=== PATIENT | female | born 1960 | race Caucasian/White ===

== ENCOUNTER 2016-10-28 23:16 | Observation (INO) | payer BC, OTHER ==
[~2016-10-28] VITALS: Ht 152.4 cm; Wt 75.2 kg
[~2016-10-28 23:16] MED LIST: ESCI10TA17 PO; GLC/500 PO; PANT40TA PO; PRVC/40 PO; ZIPR20CA PO
[2016-10-28] MEDS ORDERED: KETOROLAC TROMETHAMINE 30 MG/ML VIAL IV STA (23:35)
[2016-10-28] MEDS ORDERED: ONDANSETRON INJ 2 MG/ML 2 ML VIAL IV STA (23:38)
[2016-10-28] MEDS ORDERED: SODIUM CHLORIDE 0.9% 1000ML 1,000 ML IV STA (23:47)
[2016-10-28] MEDS ORDERED: FENTANYL CITRATE INJ 50 MCG/1 ML 2 ML VIAL IV STA (23:47)
[2016-10-28 23:48] LABS: BASO % 0.1 %; BASO ABS # 0.01 K/uL (0-0.2); COMPLETE YES; EOS % 2.2 %; HEMATOCRIT 37.5 % (37-47); IG% 0.2 %; LYMPH % 47.7 %; LYMPH ABS # 4.31 K/uL (1.2-3.4); MEAN CELL VOLUME 89.3 fL (80-100); MEAN CORPUSCULAR HEMOGLOBIN 31.2 pg (25-34); MEAN CORPUSCULAR HGB CONC 34.9 g/dl (32-36); MEAN PLATELET VOLUME 9.2 fL (7.4-10.4); NEUT % 42.8 %; PLATELET COUNT 349 K/uL (130-400); WHITE BLOOD COUNT 9.03 K/uL (4.8-10.8)
--- NOTE | 2016-10-28 23:54 | EMERGENCY ROOM VISIT NOTE ---
History First contact with patient: 23:26 Chief Complaint: ABDOMINAL PAIN Stated Complaint: PAIN RT SIDE OF STOMACH History of Present Illness The patient is a 56 year old female who presents to the Emergency Room with complaints of abdominal pain. Pain is 10/10 constant in the RUQ region. NO previous similar symptoms. She also reports 4 days of diarrhea, chills, nausea , She denies CP, SOB,. She did not take any medication for pain. Pt denies headache, chest pain, shortness of breath, urinary frequency, urgency, pain with urination, and melena. Review of Systems See HPI for pertinent positives & negatives. A total of 10 systems reviewed and were otherwise negative. Past Medical/Surgical History Medical Problems: (1) Acid reflux (2) Gall bladder disease (3) Prediabetes (4) RUQ pain Family History Cancer Diabetes mellitus Gallbladder disease Heart disease Hypertension Social History Smoking Status: Never Smoker Alcohol Use: none Housing Status: lives alone Occupation Status: employed Current/Historical Medications Scheduled Metformin Hcl (Glucophage), 500 MG PO DAILY Pantoprazole (Protonix), 40 MG PO DAILY Pravastatin Sod (Pravastatin Sodium), 40 MG PO DAILY Ziprasidone Hcl (Geodon), 20 MG PO BID Scheduled PRN Hydroxyzine Hcl (Atarax), 25 MG PO BID PRN for Anxiety Allergies Uncoded Allergies: ASA--GI,KEFLEX (Allergy, Unknown, 08/14/04) Physical Exam Vital Signs Date Time Temp Pulse Resp B/P Pulse Ox O2 Delivery O2 Flow Rate FiO2 10/29/16 03:46 68 15 125/69 95 Room Air 10/29/16 02:20 66 17 134/78 97 Room Air 10/29/16 01:13 74 10/29/16 01:03 77 16 124/72 93 Room Air 10/28/16 23:22 36.5 81 20 168/92 98 Room Air Physical Exam GENERAL: alert, mod. distress, EYE EXAM: normal conjunctiva, PERRL and EOM's grossly intact NECK: supple, no nuchal rigidity, no adenopathy, non-tender LUNGS: Clear to auscultation. Normal chest wall mechanics HEART: no murmurs, S1 normal and S2 normal ABDOMEN: tenderness to palpation RUQ, normo-active bowel sounds, no masses, no rebound or guarding. BACK: Back is symmetrical on inspection and there is no deformity, no midline tenderness, no CVA tenderness. SKIN: no rashes and no bruising UPPER EXTREMITIES: upper extremities are grossly normal. LOWER EXTREMITIES: No pitting edema. Medical Decision & Procedures Laboratory Results 10/28/16 23:35 Red Blood Count 4.20, Mean Corpuscular Volume 89.3, Mean Corpuscular Hemoglobin 31.2, Mean Corpuscular Hemoglobin Concent 34.9, Mean Platelet Volume 9.2, Neutrophils (%) (Auto) 42.8, Lymphocytes (%) (Auto) 47.7, Monocytes (%) (Auto) 7.0, Eosinophils (%) (Auto) 2.2, Basophils (%) (Auto) 0.1, Neutrophils # (Auto) 3.86, Lymphocytes # (Auto) 4.31, Monocytes # (Auto) 0.63, Eosinophils # (Auto) 0.20, Basophils # (Auto) 0.01 10/28/16 23:35 Test 10/28/16 23:35 White Blood Count 9.03 K/uL (4.8-10.8) Red Blood Count 4.20 M/uL (4.2-5.4) Hemoglobin 13.1 g/dL (12.0-16.0) Hematocrit 37.5 % (37-47) Mean Corpuscular Volume 89.3 fL (80-100) Mean Corpuscular Hemoglobin 31.2 pg (25-34) Mean Corpuscular Hemoglobin Concent 34.9 g/dl (32-36) Platelet Count 349 K/uL (130-400) Mean Platelet Volume 9.2 fL (7.4-10.4) Neutrophils (%) (Auto) 42.8 % Lymphocytes (%) (Auto) 47.7 % Monocytes (%) (Auto) 7.0 % Eosinophils (%) (Auto) 2.2 % Basophils (%) (Auto) 0.1 % Neutrophils # (Auto) 3.86 K/uL (1.4-6.5) Lymphocytes # (Auto) 4.31 K/uL (1.2-3.4) Monocytes # (Auto) 0.63 K/uL (0.11-0.59) Eosinophils # (Auto) 0.20 K/uL (0-0.5) Basophils # (Auto) 0.01 K/uL (0-0.2) RDW Standard Deviation 42.4 fL (36.4-46.3) RDW Coefficient of Variation 13.0 % (11.5-14.5) Immature Granulocyte % (Auto) 0.2 % Immature Granulocyte # (Auto) 0.02 K/uL (0.00-0.02) Anion Gap 10.0 mmol/L (3-11) Est Creatinine Clear Calc Drug Dose 56.9 ml/min Estimated GFR () 72.9 Estimated GFR (Non- 62.9 BUN/Creatinine Ratio 20.2 (10-20) Calcium Level 8.3 mg/dl (8.5-10.1) Total Bilirubin 0.3 mg/dl (0.2-1) Direct Bilirubin < 0.1 mg/dl (0-0.2) Aspartate Amino Transf (AST/SGOT) 24 U/L (15-37) Alanine Aminotransferase (ALT/SGPT) 42 U/L (12-78) Alkaline Phosphatase 113 U/L (45-117) Total Protein 7.2 gm/dl (6.4-8.2) Albumin 3.9 gm/dl (3.4-5.0) Lipase 345 U/L (73-393) Chemistry Specimen Hemolysis Medications Administered Medications (Trade) Dose Ordered Sig/Bouchra Route Start Time Stop Time Status Last Admin Dose Admin Ondansetron HCl (Zofran Inj) 4 mg NOW STAT IV 10/28/16 23:38 10/28/16 23:39 DC 10/28/16 00:00 4 MG Fentanyl Citrate 50 mcg 50 mcg NOW STAT IV 10/28/16 23:47 10/28/16 23:48 DC 10/28/16 00:00 50 MCG Sodium Chloride (Nss 1000ml) 1,000 ml @ 999 mls/hr Q1H1M STAT IV 10/28/16 23:47 10/29/16 00:47 DC 10/28/16 00:00 999 MLS/HR Fentanyl Citrate (Fentanyl Inj) 75 mcg NOW STAT IV 10/29/16 00:55 10/29/16 00:56 DC 10/29/16 01:00 75 MCG Ondansetron HCl (Zofran Inj) 4 mg NOW STAT IV 10/29/16 01:30 10/29/16 01:31 DC 10/29/16 01:47 4 MG Hydromorphone HCl (Dilaudid Inj) 1 mg NOW STAT IV 10/29/16 02:15 10/29/16 02:16 DC 10/29/16 02:20 1 MG Cefoxitin Sodium (Mefoxin IV) 2,000 mg NOW STAT IV 10/29/16 03:26 10/29/16 03:28 DC 10/29/16 03:45 2,000 MG Medical Decision 56 yo F p/w 4 hrs of p/w abdominal pain 10/10 intensity , RUQ tenderness on exam, VSS, afebrile Acute Cholecystitis with Cholelithiasis CBC unremarkable BMP BUN 20, otherwise unremarkable Lipase negative CT Abdomen: cholelithiasis with possible mural thickening of gallbladder and questionable pericholecystic stranding. RUQ U/S: gallbladder distended containing multiple stones and possible foci of andeomyomatosis, common bile duct 8 mm - MRCP suggested by Radiologist. -Given 1L NS -Given Fentanyl 50 mcg, IV Dilaudid 1 mg -Given IV Zofran 4 mg -Given 1 dose of Cefoxitin IV 2 mg Upon reevaluation, the patient is feeling better. I discussed the case with the resident, DR. Treviño on the hospitalist service who agreed to evaluate her for the inpatient service. She verbalizes agreement and understanding. Impression Primary Impression: Cholecystitis, acute with cholelithiasis Departure Information Dispostion Admitted as an inpatient Referrals Sameera Mayer C.R.N.P. (PCP) Patient Instructions My [facility] Resident Tracking Resident Involvement: Resident Care Provided Care Provided: Adult ED
[2016-10-28] MEDS ORDERED: HYDR-3124 PO (23:56)
--- NOTE | 2016-10-28 23:58 | EMERGENCY ROOM VISIT NOTE ---
History Report prepared by Bertha: Jose Cruz Hernandez Under the Supervision of: Dr. Yosef Downs M.D. First contact with patient: 23:26 Chief Complaint: ABDOMINAL PAIN Stated Complaint: PAIN RT SIDE OF STOMACH History of Present Illness The patient is a 56 year old female who presents to the Emergency Room with complaints of constant abdominal pain that started at 1999 tonight. The pain is severe and is localized to the right upper quadrant. She has never had pain like this before and did not take anything for pain. She has also had four days of chills, nausea, and diarrhea. She has not vomited. The patient denies any chest pain or blood in her stools. The patient does not have any sick contacts. She has not had any previous abdominal surgeries and still has her gallbladder and appendix. She denies any recent injury. The patient takes Metformin for diabetes. Her last A1C was around 5.0. She also has a history of bipolar disorder. Source of History: patient Onset: 1999 tonight Position: abdomen (RUQ) Symptom Intensity: severe Timing: constant Associated Symptoms: + chills, + diarrhea, + nausea, No hematochezia, No vomiting Review of Systems See HPI for pertinent positives & negatives. A total of 10 systems reviewed and were otherwise negative. Past Medical & Surgical Medical Problems: (1) Acid reflux (2) Gall bladder disease (3) Prediabetes (4) RUQ pain Family History Cancer Diabetes mellitus Gallbladder disease Heart disease Hypertension Social History Smoking Status: Never Smoker Alcohol Use: none Housing Status: lives alone Occupation Status: employed Current/Historical Medications Scheduled Metformin Hcl (Glucophage), 500 MG PO DAILY Pantoprazole (Protonix), 40 MG PO DAILY Pravastatin Sod (Pravastatin Sodium), 40 MG PO DAILY Ziprasidone Hcl (Geodon), 20 MG PO BID Scheduled PRN Hydroxyzine Hcl (Atarax), 25 MG PO BID PRN for Anxiety Allergies Uncoded Allergies: ASA--GI,KEFLEX (Allergy, Unknown, 08/14/04) Physical Exam Vital Signs Date Time Temp Pulse Resp B/P Pulse Ox O2 Delivery O2 Flow Rate FiO2 10/29/16 03:46 68 15 125/69 95 Room Air 10/29/16 02:20 66 17 134/78 97 Room Air 10/29/16 01:13 74 10/29/16 01:03 77 16 124/72 93 Room Air 10/28/16 23:22 36.5 81 20 168/92 98 Room Air Physical Exam GENERAL: Patient is very uncomfortable appearing in moderate / severe distress. HEENT: No acute trauma, normocephalic atraumatic, mucous membranes moist, no nasal congestion, no scleral icterus. NECK: No stridor, no adenopathy, no meningismus, trachea is midline. LUNGS: No dyspnea. Clear to auscultation and equal bilaterally. No wheeze, no rhonchi. HEART: Regular rate and rhythm. No murmurs, rubs, gallops appreciated. ABDOMEN: Moderate right upper quadrant tenderness to palpation without peritonitis, no lower abdominal tenderness, hyperactive bowel sounds. BACK: No midline tenderness, no CVA tenderness EXTREMITIES: Normal motion all extremities, no cyanosis, no edema. NEUROLOGIC: Alert and oriented, no acute motor or sensory deficits, no focal weakness, cranial nerves grossly intact. SKIN: No rash, no jaundice, no diaphoresis. Medical Decision & Procedures ER Provider Diagnostic Interpretation: Radiology results and stated below per my review and radiologist interpretation: CT ABDOMEN & PELVIS: Suggestion of cholelithiasis with possible mural thickening of the gallbladder and questionable minimal pericholecystic stranding. Correlate for cholecystitis. Correlate with ultrasound as indicated. The appendix is not visualized. Diverticulosis without diverticulitis and other nonemergent accidental findings. Radiologist: Aroldo Mendez MD. US RUQ: Gallbladder wall is not thickened, measuring 2 mm. however the gallbladder is distended containing multiple stones and possible foci of adenomyomatosis. Query small amount of fluid adjacent to the gallbladder. The presence of sonographic Buitrago sign not specifically reported. Correlate clinically to exclude cholecystitis. Common bile duct measures 8 mm. If clinically concerned for distal biliary ductal obstruction, considered MRCP. Suggestion of steatosis versus other hepatocellular disease alternatively. Radiologist Jose M Rainey MD. Laboratory Results 10/28/16 23:35 Red Blood Count 4.20, Mean Corpuscular Volume 89.3, Mean Corpuscular Hemoglobin 31.2, Mean Corpuscular Hemoglobin Concent 34.9, Mean Platelet Volume 9.2, Neutrophils (%) (Auto) 42.8, Lymphocytes (%) (Auto) 47.7, Monocytes (%) (Auto) 7.0, Eosinophils (%) (Auto) 2.2, Basophils (%) (Auto) 0.1, Neutrophils # (Auto) 3.86, Lymphocytes # (Auto) 4.31, Monocytes # (Auto) 0.63, Eosinophils # (Auto) 0.20, Basophils # (Auto) 0.01 10/28/16 23:35 Test 10/28/16 23:35 White Blood Count 9.03 K/uL (4.8-10.8) Red Blood Count 4.20 M/uL (4.2-5.4) Hemoglobin 13.1 g/dL (12.0-16.0) Hematocrit 37.5 % (37-47) Mean Corpuscular Volume 89.3 fL (80-100) Mean Corpuscular Hemoglobin 31.2 pg (25-34) Mean Corpuscular Hemoglobin Concent 34.9 g/dl (32-36) Platelet Count 349 K/uL (130-400) Mean Platelet Volume 9.2 fL (7.4-10.4) Neutrophils (%) (Auto) 42.8 % Lymphocytes (%) (Auto) 47.7 % Monocytes (%) (Auto) 7.0 % Eosinophils (%) (Auto) 2.2 % Basophils (%) (Auto) 0.1 % Neutrophils # (Auto) 3.86 K/uL (1.4-6.5) Lymphocytes # (Auto) 4.31 K/uL (1.2-3.4) Monocytes # (Auto) 0.63 K/uL (0.11-0.59) Eosinophils # (Auto) 0.20 K/uL (0-0.5) Basophils # (Auto) 0.01 K/uL (0-0.2) RDW Standard Deviation 42.4 fL (36.4-46.3) RDW Coefficient of Variation 13.0 % (11.5-14.5) Immature Granulocyte % (Auto) 0.2 % Immature Granulocyte # (Auto) 0.02 K/uL (0.00-0.02) Anion Gap 10.0 mmol/L (3-11) Est Creatinine Clear Calc Drug Dose 56.9 ml/min Estimated GFR () 72.9 Estimated GFR (Non- 62.9 BUN/Creatinine Ratio 20.2 (10-20) Calcium Level 8.3 mg/dl (8.5-10.1) Total Bilirubin 0.3 mg/dl (0.2-1) Direct Bilirubin < 0.1 mg/dl (0-0.2) Aspartate Amino Transf (AST/SGOT) 24 U/L (15-37) Alanine Aminotransferase (ALT/SGPT) 42 U/L (12-78) Alkaline Phosphatase 113 U/L (45-117) Total Protein 7.2 gm/dl (6.4-8.2) Albumin 3.9 gm/dl (3.4-5.0) Lipase 345 U/L (73-393) Chemistry Specimen Hemolysis Laboratory results as reviewed by me. Medications Administered Medications (Trade) Dose Ordered Sig/Bouchra Route Start Time Stop Time Status Last Admin Dose Admin Ondansetron HCl (Zofran Inj) 4 mg NOW STAT IV 10/28/16 23:38 10/28/16 23:39 DC 10/28/16 00:00 4 MG Fentanyl Citrate 50 mcg 50 mcg NOW STAT IV 10/28/16 23:47 10/28/16 23:48 DC 10/28/16 00:00 50 MCG Sodium Chloride (Nss 1000ml) 1,000 ml @ 999 mls/hr Q1H1M STAT IV 10/28/16 23:47 10/29/16 00:47 DC 10/28/16 00:00 999 MLS/HR Fentanyl Citrate (Fentanyl Inj) 75 mcg NOW STAT IV 10/29/16 00:55 10/29/16 00:56 DC 10/29/16 01:00 75 MCG Ondansetron HCl (Zofran Inj) 4 mg NOW STAT IV 10/29/16 01:30 10/29/16 01:31 DC 10/29/16 01:47 4 MG Hydromorphone HCl (Dilaudid Inj) 1 mg NOW STAT IV 10/29/16 02:15 10/29/16 02:16 DC 10/29/16 02:20 1 MG Cefoxitin Sodium (Mefoxin IV) 2,000 mg NOW STAT IV 10/29/16 03:26 10/29/16 03:28 DC 10/29/16 03:45 2,000 MG ECG Indication: abdominal pain Rate (beats per minute): 73 Rhythm: normal sinus Findings: no acute ischemic change, no ectopy, other (poor baseline) ED Course 5130: The patient was evaluated by my resident, Dr. Moe Voss 2335: Toradol 30 mg IV. 2338: Zofran 4 mg IV. 2345: The patient was evaluated in room B10. A complete history and physical exam was performed. 2347: Fentanyl 50 mcg IV. 0000: The patient is still in pain awaiting medications. 0030: The pain is much improved at 6/10 currently. She does not want more pain medications at this time. 0055: Fentanyl 75 mcg IV. 0130: Zofran 4 mg IV. 0215: Dilaudid 1 mg IV. 0326: Mefoxin 2000 mg IV. 0400: Dr. Voss discussed the case with the [facility] Hospitalist service. The patient will be evaluated. Medical Decision Differential: Cholecystitis, Gallbladder disfunction, Hepatic Disfunction, Gastritis/PUD, Renal Colic, Pancreatitis, ACS, Aortic Pathology, amongst other pathologies entertained. 56 yr old female with Buitrago's sign on examination and symptoms consistent with cholecystitis vs impacted GB stone. No fever and labs look good though with pain she is having clearly CT indicated first. Concerning for GB thickening thus went ahead with US GB which revealed likely stone in duct as well as possible cholecystitis. Required multiple rounds pain meds. Not septic. Will need to come in for further evaluation/treatment of symptoms. No CP, shob, nor palpitations and I do not feel this represents PE nor ACS. Impression Primary Impression: Acute cholecystitis Scribe Attestation The scribe's documentation has been prepared under my direction and personally reviewed by me in its entirety. I confirm that the note above accurately reflects all work, treatment, procedures, and medical decision making performed by me. Departure Information Dispostion Being Evaluated By Hospitalist Referrals Sameera Mayer, C.R.N.P. (PCP) Patient Instructions My [facility]
[2016-10-29] VITALS (9 sets, daily range): BP systolic 94–127; BP diastolic 60–78; PULSE 62–85; TEMP 36.6–36.8; O2SAT 94–100; Ht 152.4 cm; Wt 75.2 kg
[2016-10-29 00:15] LABS: ALKALINE PHOSPHATASE 113 U/L (45-117); AST/SGOT 24 U/L (15-37); BLOOD UREA NITROGEN 20 mg/dl (7-18); BUN/CREATININE RATIO 20.2 (10-20); CALCIUM 8.3 mg/dl (8.5-10.1); CARBON DIOXIDE 26 mmol/L (21-32); CHLORIDE 103 mmol/L (98-107); GLUCOSE 133 mg/dl (70-99); POTASSIUM 3.7 mmol/L (3.5-5.1); SODIUM 139 mmol/L (136-145)
[2016-10-29] MEDS ORDERED: OPTIRAY 320 IV PRN (00:15)
[2016-10-29 00:16] LABS: ALT/SGPT 42 U/L (12-78)
[2016-10-29] MEDS ORDERED: FENTANYL CITRATE INJ 50 MCG/1 ML 2 ML VIAL IV STA (00:55)
[2016-10-29] MEDS ORDERED: ONDANSETRON INJ 2 MG/ML 2 ML VIAL IV STA (01:30)
[2016-10-29] MEDS ORDERED: HYDROmorphone INJ 1 MG/ML SYR IV STA (02:15)
[2016-10-29] MEDS ORDERED: CEFOXITIN SOD 2 GM VIAL IV STA (03:26)
[2016-10-29] MEDS ORDERED: POLYETHYLENE (MIRALAX) 17 GM PACK PO PRN (04:15)
[2016-10-29] MEDS ORDERED: KETOROLAC TROMETHAMINE 30 MG/ML VIAL IV PRN (04:15)
[2016-10-29] MEDS ORDERED: ACETAMINOPHEN 325 MG TAB PO PRN (04:15)
[2016-10-29] MEDS ORDERED: MAGNESIUM HYDROXIDE SUSP 30 ML UDC PO PRN (04:15)
[2016-10-29] MEDS ORDERED: hydrOXYzine HCL 25 MG TAB PO PRN (04:15)
[2016-10-29] MEDS ORDERED: ALUMINUM/MAGNESIUM/SIMETH (MAALOX MAX) 30 ML UDC PO PRN (04:15)
[2016-10-29] MEDS ORDERED: HYDROmorphone INJ 1 MG/ML SYR IV PRN ×2 (04:15→14:00)
[2016-10-29] MEDS ORDERED: ONDANSETRON INJ 2 MG/ML 2 ML VIAL IV PRN ×2 (04:15→14:00)
--- NOTE | 2016-10-29 04:22 | History and Physical ---
History & Physical Date & Time of Service: Oct 29, 2016 at 04:22 Chief Complaint: Pain Rt Side Of Stomach Primary Care Physician: Sameera Mayer C.R.NRickPRick History of Present Illness This is a 56 y/o F with a pmh of pre-diabetes, bipolar type 2 who presents with RUQ pain that began earlier in the evening today. She reports the pain was initially a 9/10 and radiated to her Right flank. She has also had diarrhea, chills and nausea for the last 3 days. She reports that her stools have been dark green. The pain is sharp and somewhat persistent. She has not had pain like this before. Denies melena/hematochezia. She does have a family history of GB disease. She has had a hysterectomy and appendectomy. Denies recent travel. ROS otherwise negative never smoker occasional alcohol Past Medical/Surgical History Medical Problems: (1) Acid reflux Status: Chronic (2) Gall bladder disease Status: Chronic (3) Prediabetes Status: Chronic Family History Cancer Diabetes mellitus Gallbladder disease Heart disease Hypertension Social History Smoking Status: Never Smoker Alcohol Use: occasionally Drug Use: none Marital Status: single Housing status: lives alone Occupational Status: unemployed Multi-Drug Resistant Organisms History of MDRO: No Allergies Uncoded Allergies: ASA--GI,KEFLEX (Allergy, Unknown, 08/14/04) Home Medications Scheduled Metformin Hcl (Glucophage), 500 MG PO DAILY Pantoprazole (Protonix), 40 MG PO DAILY Pravastatin Sod (Pravastatin Sodium), 40 MG PO DAILY Ziprasidone Hcl (Geodon), 20 MG PO BID Scheduled PRN Acetaminophen (Tylenol), 650 MG PO Q8 PRN for mild pain (pain scale 1-3) Hydrocodone/Acetaminophen 5MG/325MG ([place] 5MG/325MG), 1 TAB PO Q6H PRN for Pain Hydroxyzine Hcl (Atarax), 25 MG PO BID PRN for Anxiety Review of Systems Constitutional: + chills, No fatigue, No fever, No sweats, No weakness, No weight loss Eyes: No worsening of vision Respiratory: No cough, No dyspnea at rest, No dyspnea on exertion, No shortness of breath, No sputum, No wheezing Cardiovascular: No chest pain Abdomen: + diarrhea, + nausea, + pain, No constipation, No vomiting Genitourinary - Female: No dysuria, No urinary frequency, No urinary incontinence, No urinary urgency Physical Exam Vital Signs Date Time Temp Pulse Resp B/P Pulse Ox O2 Delivery O2 Flow Rate FiO2 10/29/16 03:46 68 15 125/69 95 Room Air 10/29/16 02:20 66 17 134/78 97 Room Air 10/29/16 01:13 74 10/29/16 01:03 77 16 124/72 93 Room Air 10/28/16 23:22 36.5 81 20 168/92 98 Room Air General Appearance: no apparent distress Eyes: PERRL, EOMI ENT: hearing grossly normal, pharynx normal Neck: supple, no adenopathy Respiratory/Chest: lungs clear, normal breath sounds, no respiratory distress, no accessory muscle use Cardiovascular: regular rate, rhythm, no edema, no murmur, normal peripheral pulses Abdomen/GI: normal bowel sounds, soft, + tenderness (RUQ), + pertinent finding (Buitrago's +'ve) Back: no CVA tenderness Extremities/Musculoskelatal: no calf tenderness, no pedal edema Neurologic/Psych: certified registered nurse practitioner II-XII nml as tested, no motor/sensory deficits, alert, normal mood/affect, oriented x 3 Diagnostics Laboratory Results Results Past 24 Hours Test 10/28/16 23:35 Range/Units White Blood Count 9.03 4.8-10.8 K/uL Red Blood Count 4.20 4.2-5.4 M/uL Hemoglobin 13.1 12.0-16.0 g/dL Hematocrit 37.5 37-47 % Mean Corpuscular Volume 89.3 80-100 fL Mean Corpuscular Hemoglobin 31.2 25-34 pg Mean Corpuscular Hemoglobin Concent 34.9 32-36 g/dl Platelet Count 349 130-400 K/uL Mean Platelet Volume 9.2 7.4-10.4 fL Neutrophils (%) (Auto) 42.8 % Lymphocytes (%) (Auto) 47.7 % Monocytes (%) (Auto) 7.0 % Eosinophils (%) (Auto) 2.2 % Basophils (%) (Auto) 0.1 % Neutrophils # (Auto) 3.86 1.4-6.5 K/uL Lymphocytes # (Auto) 4.31 1.2-3.4 K/uL Monocytes # (Auto) 0.63 0.11-0.59 K/uL Eosinophils # (Auto) 0.20 0-0.5 K/uL Basophils # (Auto) 0.01 0-0.2 K/uL RDW Standard Deviation 42.4 36.4-46.3 fL RDW Coefficient of Variation 13.0 11.5-14.5 % Immature Granulocyte % (Auto) 0.2 % Immature Granulocyte # (Auto) 0.02 0.00-0.02 K/uL Sodium Level 139 136-145 mmol/L Potassium Level 3.7 3.5-5.1 mmol/L Chloride Level 103 98-107 mmol/L Carbon Dioxide Level 26 21-32 mmol/L Anion Gap 10.0 3-11 mmol/L Blood Urea Nitrogen 20 7-18 mg/dl Creatinine 1.00 0.60-1.20 mg/dl Est Creatinine Clear Calc Drug Dose 56.9 ml/min Estimated GFR () 72.9 Estimated GFR (Non- 62.9 BUN/Creatinine Ratio 20.2 10-20 Random Glucose 133 70-99 mg/dl Calcium Level 8.3 8.5-10.1 mg/dl Total Bilirubin 0.3 0.2-1 mg/dl Direct Bilirubin < 0.1 0-0.2 mg/dl Aspartate Amino Transf (AST/SGOT) 24 15-37 U/L Alanine Aminotransferase (ALT/SGPT) 42 12-78 U/L Alkaline Phosphatase 113 45-117 U/L Total Protein 7.2 6.4-8.2 gm/dl Albumin 3.9 3.4-5.0 gm/dl Lipase 345 73-393 U/L Chemistry Specimen Hemolysis Impression Assessment and Plan This is a 56 y/o F who presents with RUQ pain concerning for acute cholecystitis vs. other gb pathologies vs. Gastritis/PUD etc. Patient is currently afebrile, without a white count, hemodynamically stable however, despite all that can't exclude cholecystitis/gangrenous GB. RUQ pain gall bladder USg with distension and multiple stones,? cholecystitis Keep NPO IV NSS Cefoxitin q6h HIDA scan and then possibly MRCP Consult surgery after results. Pain Management Zofran Bipolar 2 continue Ziprasidone Pre-diabetes Hold metformin- can continue on discharge DVT: SCDS Hold chemical, in case surgery is needed GERD Protonix Code: Full VTE Prophylaxis VTE Risk Assessment Done? Y/N: Yes Risk Level: Moderate Assessment and Plan Attending Addendum: Next I have physically seen and examined this patient, have directed their medical care, have supervised the medical residents activities, and agree with the H&P as noted above, with the following changes: NONE
[2016-10-29] MEDS ORDERED: IV FLUIDS COMPLETED PRN (04:30)
--- NOTE | 2016-10-29 07:06 | DIAGNOSTIC IMAGING REPORT ---
CT OF THE ABDOMEN AND PELVIS WITH CONTRAST CLINICAL HISTORY: Right upper quadrant abdominal pain. COMPARISON STUDY: None. TECHNIQUE: Following IV administration of 91 mL of [id number]-[id number], axial images of the abdomen and pelvis were obtained from the lung bases to the proximal femurs. Images were reviewed in the axial, sagittal, and coronal planes. IV contrast was administered without complication. CT DOSE: 486.46 mGy.cm FINDINGS: The liver, spleen, adrenal glands, kidneys and pancreas are unremarkable. A suspected gallstone is noted within the gallbladder. There may be trace pericholecystic fluid with possible gallbladder wall thickening. There is no evidence for a bowel obstruction. The appendix is not visualized. There is no lymphadenopathy. There is colonic diverticulosis without evidence for acute diverticulitis. There is severe arthritis of the left hip. IMPRESSION: 1. Cholelithiasis with possible pericholecystic fluid and gallbladder wall thickening. A right upper quadrant ultrasound could be obtained. 2. No bowel obstruction. 3. Colonic diverticulosis without evidence for acute diverticulitis. Electronically signed by: Reza Grier M.D. 10/29/2016 7:04 AM Dictated Date/Time: 10/29/2016 6:58 AM
--- NOTE | 2016-10-29 07:11 | DIAGNOSTIC IMAGING REPORT ---
ABDOMINAL ULTRASOUND, RIGHT UPPER QUADRANT HISTORY: Right upper quadrant abdominal pain. COMPARISON: CT of the abdomen and pelvis October 29, 2016. FINDINGS: There are gallstones within the gallbladder. The gallbladder is distended. There is trace pericholecystic fluid. No gallbladder wall thickening is noted. There is borderline dilatation of the common bile duct. No common bile duct calculi are identified. The pancreatic body is normal. The head and tail are obscured. There is no right hydronephrosis. Increased hepatic echogenicity suggests fatty infiltration. IMPRESSION: 1. Cholelithiasis, mild gallbladder distention and trace pericholecystic fluid. A hepatobiliary scan could be obtained to evaluate for acute cholecystitis. 2. Borderline dilatation of the common bile duct. 3. Fatty liver. Electronically signed by: Reza Grier M.D. 10/29/2016 7:09 AM Dictated Date/Time: 10/29/2016 7:07 AM
[2016-10-29] MEDS: SODIUM CHLORIDE 0.9% 1000ML 1,000 ML IV SCH ×3 (07:20→22:27)
[2016-10-29] MEDS ORDERED: SINCALIDE INJ 1.5 MCG in SODIUM CHLORIDE 0.9% 100ML 100 ML IV ONE (08:30)
--- NOTE | 2016-10-29 09:51 | DIAGNOSTIC IMAGING REPORT ---
NUCLEAR MEDICINE HEPATOBILIARY SCAN, CLINICAL HISTORY: COMPARISON STUDY: Gallbladder ultrasound dated 10/29/2016, CT scan dated 10/29/2016 FINDINGS: The patient was injected with 5.6 mCi of technetium 99m Choletec. Sequential 5 minute images were acquired. The gallbladder was not visualized on imaging up to 1 hour. At 1 hour the patient was administered 1 mg intravenous Dilaudid. Imaging out to 90 minutes was performed. The gallbladder was not visualized. The findings are indicative of cystic duct obstruction as would be seen in acute cholecystitis. IMPRESSION: Nonvisualization of the gallbladder. The findings are indicative of cystic duct obstruction as would be seen in acute cholecystitis. Electronically signed by: Job Wang M.D. 10/29/2016 9:49 AM Dictated Date/Time: 10/29/2016 9:44 AM
[2016-10-29] MEDS: CEFOXITIN IV 2,000 MG in DEXTROSE 5% 50ML 50 ML IV SCH ×3 (10:08→22:24)
[2016-10-29] MEDS: ZIPRASIDONE 20 MG CAP PO SCH ×2 (11:57→22:25)
[2016-10-29] MEDS: PANTOprazole SOD 40 MG TAB PO SCH (11:57)
--- NOTE | 2016-10-29 11:57 | Progress Note ---
Subjective Date of Service: Oct 29, 2016. Subjective Pt evaluation today including: conversation w/ patient, physical exam, chart review RUQ pain. Problem List Medical Problems: (1) Acute cholecystitis Status: Acute (2) Anxiety Status: Acute (3) Cholecystitis, acute with cholelithiasis Status: Acute (4) Medication side effect Status: Acute Review of Systems Respiratory: No cough, No dyspnea at rest, No dyspnea on exertion, No hemoptysis, No problem reported, No see HPI, No shortness of breath, No sputum, No wheezing Cardiac: No PND, No chest pain, No claudication, No edema, No orthopnea, No palpitations, No problem reported, No see HPI Abdomen: + pain Neurologic: No balance problems, No memory loss, No numbness/tingling, No paralysis, No problem reported, No see HPI, No vertigo, No weakness Medications Medications (Trade) Dose Ordered Sig/Bouchra Route Start Time Stop Time Status Last Admin Dose Admin Ondansetron HCl (Zofran Inj) 4 mg NOW STAT IV 10/28/16 23:38 10/28/16 23:39 DC 10/28/16 00:00 4 MG Fentanyl Citrate 50 mcg 50 mcg NOW STAT IV 10/28/16 23:47 10/28/16 23:48 DC 10/28/16 00:00 50 MCG Sodium Chloride (Nss 1000ml) 1,000 ml @ 999 mls/hr Q1H1M STAT IV 10/28/16 23:47 10/29/16 00:47 DC 10/28/16 00:00 999 MLS/HR Fentanyl Citrate (Fentanyl Inj) 75 mcg NOW STAT IV 10/29/16 00:55 10/29/16 00:56 DC 10/29/16 01:00 75 MCG Ondansetron HCl (Zofran Inj) 4 mg NOW STAT IV 10/29/16 01:30 10/29/16 01:31 DC 10/29/16 01:47 4 MG Hydromorphone HCl (Dilaudid Inj) 1 mg NOW STAT IV 10/29/16 02:15 10/29/16 02:16 DC 10/29/16 02:20 1 MG Cefoxitin Sodium 2000 mg 2,000 mg NOW STAT IV 10/29/16 03:26 10/29/16 03:28 DC 10/29/16 03:45 2,000 MG Sodium Chloride (Nss 1000ml) 1,000 ml @ 125 mls/hr Q8H IV 10/29/16 06:00 11/28/16 05:59 10/29/16 07:20 125 MLS/HR Hydromorphone HCl 1 mg 1 mg Q4 PRN IV 10/29/16 04:15 11/12/16 04:14 10/29/16 09:02 1 MG Cefoxitin Sodium/ Dextrose (Mefoxin IV/D5 50ml) 60 ml @ 100 mls/hr Q6H IV 10/29/16 10:00 11/08/16 09:59 10/29/16 10:08 100 MLS/HR Objective Vital Signs Date Time Temp Pulse Resp B/P Pulse Ox O2 Delivery O2 Flow Rate FiO2 10/29/16 08:00 Room Air 10/29/16 07:18 36.7 68 18 94/60 97 Room Air 10/29/16 06:18 36.8 70 16 114/69 96 Room Air 10/29/16 05:28 69 18 130/76 95 Room Air 10/29/16 03:46 68 15 125/69 95 Room Air 10/29/16 02:20 66 17 134/78 97 Room Air 10/29/16 01:13 74 10/29/16 01:03 77 16 124/72 93 Room Air 10/28/16 23:22 36.5 81 20 168/92 98 Room Air Physical Exam General Appearance: WD/WN Eyes: normal inspection ENT: normal ENT inspection Neck: supple, no adenopathy Respiratory/Chest: chest non-tender, lungs clear Cardiovascular: regular rate, rhythm, no edema, no murmur Abdomen: normal bowel sounds, + tenderness (ruq) Extremities: normal range of motion 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/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 nml as tested, oriented x 3 Laboratory Results Last 24 Hours Test 10/28/16 23:35 White Blood Count 9.03 K/uL Red Blood Count 4.20 M/uL Hemoglobin 13.1 g/dL Hematocrit 37.5 % Mean Corpuscular Volume 89.3 fL Mean Corpuscular Hemoglobin 31.2 pg Mean Corpuscular Hemoglobin Concent 34.9 g/dl Platelet Count 349 K/uL Mean Platelet Volume 9.2 fL Neutrophils (%) (Auto) 42.8 % Lymphocytes (%) (Auto) 47.7 % Monocytes (%) (Auto) 7.0 % Eosinophils (%) (Auto) 2.2 % Basophils (%) (Auto) 0.1 % Neutrophils # (Auto) 3.86 K/uL Lymphocytes # (Auto) 4.31 K/uL Monocytes # (Auto) 0.63 K/uL Eosinophils # (Auto) 0.20 K/uL Basophils # (Auto) 0.01 K/uL RDW Standard Deviation 42.4 fL RDW Coefficient of Variation 13.0 % Immature Granulocyte % (Auto) 0.2 % Immature Granulocyte # (Auto) 0.02 K/uL Sodium Level 139 mmol/L Potassium Level 3.7 mmol/L Chloride Level 103 mmol/L Carbon Dioxide Level 26 mmol/L Anion Gap 10.0 mmol/L Blood Urea Nitrogen 20 mg/dl Creatinine 1.00 mg/dl Est Creatinine Clear Calc Drug Dose 56.9 ml/min Estimated GFR () 72.9 Estimated GFR (Non- 62.9 BUN/Creatinine Ratio 20.2 Random Glucose 133 mg/dl Calcium Level 8.3 mg/dl Total Bilirubin 0.3 mg/dl Direct Bilirubin < 0.1 mg/dl Aspartate Amino Transf (AST/SGOT) 24 U/L Alanine Aminotransferase (ALT/SGPT) 42 U/L Alkaline Phosphatase 113 U/L Total Protein 7.2 gm/dl Albumin 3.9 gm/dl Lipase 345 U/L Chemistry Specimen Hemolysis NUCLEAR MEDICINE HEPATOBILIARY SCAN, CLINICAL HISTORY: COMPARISON STUDY: Gallbladder ultrasound dated 10/29/2016, CT scan dated 10/29/2016 FINDINGS: The patient was injected with 5.6 mCi of technetium 99m Choletec. Sequential 5 minute images were acquired. The gallbladder was not visualized on imaging up to 1 hour. At 1 hour the patient was administered 1 mg intravenous Dilaudid. Imaging out to 90 minutes was performed. The gallbladder was not visualized. The findings are indicative of cystic duct obstruction as would be seen in acute cholecystitis. IMPRESSION: Nonvisualization of the gallbladder. The findings are indicative of cystic duct obstruction as would be seen in acute cholecystitis. Electronically signed by: Job Wang M.D. 10/29/2016 9:49 AM Assessment and Plan Cholecystitis (acute on chronic) Gallstones Keep NPO for now Gen.Surg consult IV Abx. Follow up on cultures. HIDA scan results noted.
--- NOTE | 2016-10-29 13:25 | Pre-Operative Consultation ---
History General Date of Service: Oct 29, 2016. Stated Complaint: RUQ pain HPI HPI: The patient is a 56 year old female being seen for pre-operative evaluation at the request of Dr. Gray for acute cholecystitis. The patient developed abdominal pain about a week ago that was located in the RUQ. She thought she was constipated, pain resolved after having some tea. Around 8 pm yesterday, had recurrent severe, sharp/ stabbing RUQ pain radiating to her back. Associated with nausea, no vomiting. Had noted loose stools for the three days prior. No fevers or chills. Pain was worse with movement, deep breathing. Constant - came to ER for evaluation. Pain is better with pain medications at this time. NPO since yesterday. Historian: patient Anticipated Procedure: laparoscopic cholecystectomy Procedure Urgency: Acute Risk Assessment Major Risk Factors: no known hx of decompensated CHF, no known hx of recent LA , no known hx of severe valvular disease, no known hx of unstable or severe angina Pre-Op Conditions: + other (prediabetes) Problem List Medical Problems: (1) Acute cholecystitis Status: Acute (2) Anxiety Status: Acute (3) Cholecystitis, acute with cholelithiasis Status: Acute (4) Medication side effect Status: Acute Medical & Surgical History Past Medical History: other (prediabetes, hiatal hernia, bipolar disorder) Past Surgical History: appendectomy, hysterectomy (through pfannensteil incision) Family History Family History: no pertinent family hx Social History Hx Tobacco Use In Past Year?: No Smoking Status: Never Smoker Alcohol: none Drug Use: none Marital status: single Housing status: lives alone Occupation status: unemployed Allergies Allergies: Uncoded Allergies: ASA--GI,KEFLEX (Allergy, Unknown, 08/14/04) Medications Current Inpatient Medications Current Inpatient Medications Medications (Trade) Dose Ordered Sig/Bouchra Route Start Time Stop Time Status Last Admin Dose Admin Ioversol (Optiray 320) 100 ml UD PRN IV 10/29/16 00:15 11/02/16 00:14 Acetaminophen (Tylenol Tab) 650 mg Q4H PRN PO 10/29/16 04:15 11/28/16 04:14 Al Hydrox/Mg Hydrox/Simethicone (Maalox Max Susp) 15 ml Q4H PRN PO 10/29/16 04:15 11/28/16 04:14 Magnesium Hydroxide (Milk Of Magnesia Susp) 30 ml Q6H PRN PO 10/29/16 04:15 11/28/16 04:14 Polyethylene (Miralax Powder Packet) 17 gm DAILY PRN PO 10/29/16 04:15 11/28/16 04:14 Ondansetron HCl (Zofran Inj) 4 mg Q6H PRN IV 10/29/16 04:15 11/28/16 04:14 Hydroxyzine HCl (Vistaril Tab) 25 mg BID PRN PO 10/29/16 04:15 11/28/16 04:14 Pantoprazole Sodium (Protonix Tab) 40 mg DAILY PO 10/29/16 09:00 11/28/16 08:59 Pravastatin Sodium (Pravachol Tab) 40 mg PM PO 10/29/16 21:00 11/28/16 20:59 Ziprasidone 20 mg 20 mg BID PO 10/29/16 09:00 11/28/16 08:59 Sodium Chloride (Nss 1000ml) 1,000 ml @ 125 mls/hr Q8H IV 10/29/16 06:00 11/28/16 05:59 10/29/16 07:20 125 MLS/HR Hydromorphone HCl (Dilaudid Inj) 1 mg Q4 PRN IV 10/29/16 04:15 11/12/16 04:14 10/29/16 09:02 1 MG Ketorolac Tromethamine (Toradol Inj) 30 mg Q6H PRN IV 10/29/16 04:15 11/03/16 04:14 Miscellaneous 1 ea 1 ea PRN PRN N/A 10/29/16 04:30 10/29/17 04:29 Cefoxitin Sodium/ Dextrose (Mefoxin IV/D5 50ml) 60 ml @ 100 mls/hr Q6H IV 10/29/16 10:00 11/08/16 09:59 10/29/16 10:08 100 MLS/HR Review of Systems Review of Systems Constitutional: no symptoms reported Eyes: reports: no symptoms ENT: reports: no symptoms reported Cardiovascular: reports: no symptoms reported Respiratory: reports: no symptoms reported Gastrointestinal: see HPI Musculoskeletal: no symptoms reported Integumentary: no symptoms reported Neurologic: reports: no symptoms Psychiatric: reports: no symptoms Physical Exam Physical Exam General Appearance: + WD/WN, No distress Ears, Nose, Throat: + normal ENT inspection, No hearing abnormality Neck: No lymphadenophy, No tracheal deviation Respiratory: No accessory muscle use, No chest tenderness, No decreased breath sounds, No respiratory distress Cardiovascular: No JVD, No abnormal rate, No diastolic murmur, No systolic murmur Abdomen: + other (pfannensteil incision), + tenderness (RUQ, no santacruz's sign currently), No abnormal bowel sounds, No distension, No guarding, No hepatomegaly, No hernia Extremities: No abnormal range of motion, No edema, No slow capillary refill Neurologic/Psychiatric: No abnormal pipe cutter II-XII, No decreased LOC Skin Characteristics: No abnormal color, No cyanosis, No mottling Diagnostics Labs Labs Results Past 24 Hours Test 10/28/16 23:35 Range/Units White Blood Count 9.03 4.8-10.8 K/uL Red Blood Count 4.20 4.2-5.4 M/uL Hemoglobin 13.1 12.0-16.0 g/dL Hematocrit 37.5 37-47 % Mean Corpuscular Volume 89.3 80-100 fL Mean Corpuscular Hemoglobin 31.2 25-34 pg Mean Corpuscular Hemoglobin Concent 34.9 32-36 g/dl Platelet Count 349 130-400 K/uL Mean Platelet Volume 9.2 7.4-10.4 fL Neutrophils (%) (Auto) 42.8 % Lymphocytes (%) (Auto) 47.7 % Monocytes (%) (Auto) 7.0 % Eosinophils (%) (Auto) 2.2 % Basophils (%) (Auto) 0.1 % Neutrophils # (Auto) 3.86 1.4-6.5 K/uL Lymphocytes # (Auto) 4.31 1.2-3.4 K/uL Monocytes # (Auto) 0.63 0.11-0.59 K/uL Eosinophils # (Auto) 0.20 0-0.5 K/uL Basophils # (Auto) 0.01 0-0.2 K/uL RDW Standard Deviation 42.4 36.4-46.3 fL RDW Coefficient of Variation 13.0 11.5-14.5 % Immature Granulocyte % (Auto) 0.2 % Immature Granulocyte # (Auto) 0.02 0.00-0.02 K/uL Sodium Level 139 136-145 mmol/L Potassium Level 3.7 3.5-5.1 mmol/L Chloride Level 103 98-107 mmol/L Carbon Dioxide Level 26 21-32 mmol/L Anion Gap 10.0 3-11 mmol/L Blood Urea Nitrogen 20 7-18 mg/dl Creatinine 1.00 0.60-1.20 mg/dl Est Creatinine Clear Calc Drug Dose 56.9 ml/min Estimated GFR () 72.9 Estimated GFR (Non- 62.9 BUN/Creatinine Ratio 20.2 10-20 Random Glucose 133 70-99 mg/dl Calcium Level 8.3 8.5-10.1 mg/dl Total Bilirubin 0.3 0.2-1 mg/dl Direct Bilirubin < 0.1 0-0.2 mg/dl Aspartate Amino Transf (AST/SGOT) 24 15-37 U/L Alanine Aminotransferase (ALT/SGPT) 42 12-78 U/L Alkaline Phosphatase 113 45-117 U/L Total Protein 7.2 6.4-8.2 gm/dl Albumin 3.9 3.4-5.0 gm/dl Lipase 345 73-393 U/L Chemistry Specimen Hemolysis Lab Interpretation Lab Interpretation: labs were reviewed Diagnostic Radiology Diagnostic Radiology RUQ U/S showed gallstones with pericholecystic fluid HIDA scan c/w acute cholecystitis Impression Assessment and Plan Assessment and Plan 56 yr old woman with acute calculous cholecystitis. Normal LFT's and CBD diameter. Discussed laparoscopic cholecystectomy without IOC. Risks of bleeding , infection, postop bile leak needing ercp, conversion to open, postop diarrhea , postop intolerance to foods all discussed. Consent signed. She is interested in proceeding today - will add on to OR schedule. Expected overnight hospital stay and 1-2 wk recovery period reviewed with pt. Thank you.
[2016-10-29] MEDS ORDERED: FENTANYL CITRATE INJ 50 MCG/1 ML 2 ML VIAL ONE (13:38)
[2016-10-29] MEDS ORDERED: LIDOCAINE HCL 2% 2 ML VIAL (20MG/ML) ONE (13:38)
[2016-10-29] MEDS ORDERED: PROPOFOL IV EMULSION 10 MG/ML 20 ML VIAL IV ONE (13:38)
[2016-10-29] MEDS ORDERED: MIDAZOLAM HCL 1 MG/ML 2ML VIAL ONE (13:38)
[2016-10-29] MEDS ORDERED: CONRAY 60% 50 ML VIAL ONE (13:50)
[2016-10-29] MEDS ORDERED: BUPIVACAINE 0.5 % 5 MG/1 ML MPF 30ML VIAL ONE (13:50)
[2016-10-29] MEDS ORDERED: MEPERIDINE HCL 25 MG/ML CARP IV PRN (14:00)
[2016-10-29] MEDS ORDERED: LABETALOL HCL IV 5 MG/ML 20ML IV PRN (14:00)
[2016-10-29] MEDS ORDERED: EpHEDrine SULFATE INJ 50 MG/ML AMP IV PRN (14:00)
[2016-10-29] MEDS ORDERED: ATROPINE SULFATE 0.1 MG/ML 5ML SYR IV PRN (14:00)
[2016-10-29] MEDS ORDERED: FENTANYL CITRATE INJ 50 MCG/1 ML 2 ML VIAL IV PRN (14:00)
[2016-10-29] MEDS ORDERED: DEXAMETHASONE SOD INJ 4 MG/ML VIAL ONE (14:39)
[2016-10-29] MEDS ORDERED: ONDANSETRON INJ 2 MG/ML 2 ML VIAL ONE (14:39)
[2016-10-29] MEDS ORDERED: PHENYLEPHRINE HCL INJ 10 MG/ML VIAL ONE (14:39)
[2016-10-29] MEDS ORDERED: ROCURONIUM BROMIDE 10 MG/ML 5 ML VIAL ONE (14:39)
[2016-10-29] MEDS ORDERED: NEOSTIGMINE METHYLSULFATE 5 MG/5 ML SYR ONE (14:39)
[2016-10-29] MEDS ORDERED: GLYCOPYRROLATE INJ 0.2 MG/ML VIAL ONE (14:39)
[2016-10-29] MEDS ORDERED: SURGICEL ABSORB HEMOSTAT 2IN X 14IN TOP ONE (15:00)
[2016-10-29] MEDS ORDERED: EpHEDrine SULFATE INJ 50 MG/ML AMP ONE (15:14)
[2016-10-29] MEDS ORDERED: OXYCODONE/ACETAMINOPHEN 5-325 TAB PO PRN ×2 (15:15)
--- NOTE | 2016-10-29 15:15 | [facility] Post Operative Brief Note ---
Immediate Operative Summary Operative Date Oct 29, 2016. Pre-Operative Diagnosis acute calculous cholecystitis Post-Operative Diagnosis acute calculous cholecystitis Procedure(s) Performed Laparoscopic cholecystectomy Surgeon Dr. Kimberlyn Banks Ciaio Lumite Injector Surgeon(s) Celeste Richter PA-C Estimated Blood Loss 15mL Findings distended edematous gallbladder with impacted stone c/w acute calculous cholecystitis single area of oozing on the liver bed at the end of procedure - surgicell placed Fluids (cc crystalloids) 1100 cc Specimens A: gallbladder Drains none Anesthesia GET Complication(s) None Disposition Recovery Room / PACU
--- NOTE | 2016-10-29 15:21 | Discharge Instructions ---
Discharge Instructions Date of Service Oct 29, 2016. Admission Reason for Admission: Ruq Pain Discharge Discharge Diagnosis / Problem: acute calculous cholecystitis Discharge Goals Goal(s): Decrease discomfort Activity Recommendations Activity Limitations: resume your previous activity (walking/ stairs OK today) Lifting Limitations: no more than 10 pounds (2 wks) Exercise/Sports Limitations: until after follow-up appointment (2 wks) May Resume Sexual Activity: after two weeks Shower/Bathe: tomorrow (Remove outer gauze dressings prior to shower, leave steristrips x 7-10 days) Driving or Machine Use: resume 3 days after discharge (if off narcotics) . Instructions / Follow-Up Instructions / Follow-Up call [phone] to schedule a 2 week postop appt with Dr. Banks Current Hospital Diet Patient's current hospital diet: Clear Liquid Diet Discharge Diet Recommended Diet: Low Fat Diet (for 4-6 wks; soups or liquids if bloating persists for first few days) Procedures Procedures Performed: Laparoscopic cholecystectomy Pending Studies Studies pending at discharge: no Medical Emergencies . Who to Call and When: Medical Emergencies: If at any time you feel your situation is an emergency, please call 911 immediately. . Non-Emergent Contact Non-Emergency issues call your: Surgeon Contact Number: [phone] Call Non-Emergent contact if: temperature is above 101.5, your pain is not controlled, your pain is worsening, wound has increased drainage, wound has increased redness, wound has increased pain . "Provider Documentation" section prepared by Kimberlyn Banks. VTE Core Measure Inpt VTE Proph given/why not?: SCD's
--- NOTE | 2016-10-29 15:52 | Anesthesiology Progress Note ---
Anesthesia Post Op Note Date & Time Oct 29, 2016 at 15:51 Vital Signs Pain Intensity: 0 Vital Signs Past 12 Hours Date Time Temp Pulse Resp B/P Pulse Ox O2 Delivery O2 Flow Rate FiO2 10/29/16 15:25 36.5 74 18 110/65 96 Mask 10 10/29/16 13:50 36.8 68 18 108/69 94 Room Air 10/29/16 08:00 Room Air 10/29/16 07:18 36.7 68 18 94/60 97 Room Air 10/29/16 06:18 36.8 70 16 114/69 96 Room Air 10/29/16 05:28 69 18 130/76 95 Room Air Notes Mental Status: alert / awake / arousable, participated in evaluation Pt Amnestic to Procedure: Yes Nausea / Vomiting: adequately controlled Pain: adequately controlled Airway Patency, RR, SpO2: stable & adequate BP & HR: stable & adequate Hydration State: stable & adequate Anesthetic Complications: no major complications apparent
--- NOTE | 2016-10-29 16:34 | OPERATIVE REPORT ---
DATE OF OPERATION: 10/29/2016 PREOPERATIVE DIAGNOSIS: Acute calculous cholecystitis. POSTOPERATIVE DIAGNOSIS: Same. OPERATIVE PROCEDURE: Laparoscopic cholecystectomy. SURGEON: Kimberlyn Banks MD. DIPPER OPERATOR: Celeste Richter PA-C. ANESTHESIA: General endotracheal anesthesia. ESTIMATED BLOOD LOSS: 15 mL INTRAVENOUS FLUIDS: 1100 mL ASA-2. SPECIMENS: Gallbladder. DRAINS: None. OPERATIVE FINDINGS: A distended gallbladder with edematous adhesions and impacted stone. INDICATIONS: Ms. White is a 56-year-old woman who presented with right upper quadrant pain and nausea. Imaging was suggestive of acute cholecystitis. She was consented for laparoscopic cholecystectomy. DESCRIPTION OF PROCEDURE: The patient received Mefoxin preoperatively and had placement of sequential compression devices. After the induction of general endotracheal anesthesia, her abdomen was sterilely prepped and draped. She was positioned in Trendelenburg. A supraumbilical incision was made and a Veress needle was placed into the peritoneal cavity. This was tested with the saline drop test. Pneumoperitoneum was established. Initial pressure was 2 mmHg and this was taken up to 5 mmHg. A 5-mm trocar was then placed. Three additional trocars were placed under direct vision and an 11 in the epigastrium and two 5 on the right side of the abdomen. The patient was repositioned in reverse Trendelenburg and airplaned to the left. The gallbladder was grasped and retracted over the edge of the liver. This was acutely distended and had multiple edematous adhesions. These adhesions were bluntly peeled away. This was somewhat of a oozing dissection. The dissection was begun around the triangle of Calot and the cystic artery and cystic duct identified. The gallbladder was triangulated on the cystic duct. The artery was doubly clipped on the remaining side, similarly clipped on the gallbladder side and divided. After critical views were seen anteriorly and posteriorly, the cystic duct was triply clipped on the remaining side, doubly clipped on the gallbladder side and divided. The gallbladder was then dissected off the liver bed. Again, this was quite edematous gallbladder. This was a slightly oozing dissection. The gallbladder was then removed through an Endobag in the epigastric incision. The abdomen was irrigated and suctioned. There was a single area on the liver that appeared to be oozing. This appeared to be venous. These attempts were made to control this with the cautery. It did slow down. Surgicel was then placed against it and it appeared to stop with application of Surgicel. The Surgicel was left in place. The abdomen was again irrigated. Trocars were removed. The 30 mL of 0.5% Marcaine had been used for local anesthesia throughout the procedure. The fascia of the epigastrium was closed with an 0 Vicryl stitch placed anteriorly. The skin of all 4 incisions closed with running subcuticular 4-0 Vicryl sutures. Steri-Strip and sterile dressings were applied. She was awakened and taken to recovery in stable condition. I attest to the content of the Intraoperative Record and any orders documented therein. Any exceptio ns are noted below.
[2016-10-29] MEDS: ACETAMINOPHEN 325 MG TAB PO PRN (17:46)
[2016-10-29] MEDS ORDERED: PRAVASTATIN SOD 40 MG TAB PO SCH (21:00)
[2016-10-30] VITALS: O2SAT 96
[2016-10-30] MEDS: ACETAMINOPHEN 325 MG TAB PO PRN ×2 (00:42→13:20)
[2016-10-30] MEDS: CEFOXITIN IV 2,000 MG in DEXTROSE 5% 50ML 50 ML IV SCH ×2 (05:09→10:17)
[2016-10-30 07:40] VITALS: BP 108/69; PULSE 69; TEMP 36.9; O2SAT 94
[2016-10-30 07:42] LABS: COMPLETE YES; HEMATOCRIT 31.6 % (37-47); IG% 0.3 %; LYMPH % 19.2 %; LYMPH ABS # 1.37 K/uL (1.2-3.4); MEAN CORPUSCULAR HEMOGLOBIN 30.1 pg (25-34); MEAN CORPUSCULAR HGB CONC 33.9 g/dl (32-36); MEAN PLATELET VOLUME 8.9 fL (7.4-10.4); MONO % 6.6 %; NEUT % 73.9 %; PLATELET COUNT 262 K/uL (130-400); RED BLOOD COUNT 3.55 M/uL (4.2-5.4); WHITE BLOOD COUNT 7.12 K/uL (4.8-10.8)
[2016-10-30 07:43] VITALS: O2SAT 94
[2016-10-30] MEDS: SODIUM CHLORIDE 0.9% 1000ML 1,000 ML IV SCH (07:56)
[2016-10-30] MEDS: ZIPRASIDONE 20 MG CAP PO SCH (07:57)
[2016-10-30] MEDS: PANTOprazole SOD 40 MG TAB PO SCH (07:58)
[2016-10-30 08:27] LABS: BUN/CREATININE RATIO 7.7 (10-20); CALCIUM 7.9 mg/dl (8.5-10.1); CREATININE 0.84 mg/dl (0.60-1.20); POTASSIUM 3.7 mmol/L (3.5-5.1)
[2016-10-30 10:41] VITALS: BP 105/66; PULSE 65; TEMP 36.5; O2SAT 95
--- NOTE | 2016-10-30 11:04 | Surgery Progress Note ---
Surgery Progress Note Date of Service Oct 30, 2016. Subjective Post OP Day: 1 + diet (tolerating), + feeling well, + pain controlled, No nausea, No vomiting Objective Vital Signs: Date Time Temp Pulse Resp B/P Pulse Ox O2 Delivery O2 Flow Rate FiO2 10/30/16 10:41 36.5 65 16 105/66 95 Room Air 10/30/16 07:50 Room Air 10/30/16 07:43 94 Room Air 10/30/16 07:40 36.9 69 16 108/69 94 Room Air 10/30/16 00:00 96 Room Air Mask 10/29/16 23:47 36.8 62 20 103/62 94 Room Air 10/29/16 22:45 36.8 85 18 127/77 97 Room Air 10/29/16 19:37 36.7 72 20 109/74 99 Nasal Cannula 2.0 10/29/16 17:45 36.8 70 18 123/78 100 Nasal Cannula 2.0 10/29/16 16:51 36.6 73 18 106/71 97 Nasal Cannula 2.0 10/29/16 16:15 36.8 75 20 95/62 96 Nasal Cannula 2.0 10/29/16 16:11 77 16 10/29/16 16:11 79 16 96 10/29/16 16:10 102/62 10/29/16 16:06 72 16 96 10/29/16 16:06 72 16 10/29/16 16:05 99/65 10/29/16 16:05 36.7 69 17 99/65 96 Nasal Cannula 2 10/29/16 16:01 71 19 10/29/16 16:01 72 19 96 10/29/16 16:00 75 15 100/61 96 10/29/16 16:00 96 Nasal Cannula 2.0 Mask 10/29/16 16:00 74 15 10/29/16 15:55 74 19 99/65 96 10/29/16 15:55 73 19 10/29/16 15:50 68 22 107/65 99 10/29/16 15:50 70 22 10/29/16 15:45 67 18 112/62 100 10/29/16 15:45 67 18 10/29/16 15:40 68 18 109/65 100 10/29/16 15:40 68 18 10/29/16 15:35 69 16 114/63 100 4/7/17 15:35 70 16 10/29/16 15:30 70 15 110/65 100 10/29/16 15:30 69 15 10/29/16 15:25 73 15 10/29/16 15:25 36.5 74 18 110/65 96 Mask 10 10/29/16 15:25 73 15 110/65 99 10/29/16 13:50 36.8 68 18 108/69 94 Room Air General Appearance: WD/WN, no apparent distress Respiratory/Chest: normal breath sounds, no respiratory distress Cardiovascular: regular rate, rhythm Abdomen: normal bowel sounds, non tender, non distended, soft Incision(s): clean, dry, intact Laboratory Results: Results Past 24 Hours Test 10/30/16 07:19 Range/Units White Blood Count 7.12 4.8-10.8 K/uL Red Blood Count 3.55 4.2-5.4 M/uL Hemoglobin 10.7 12.0-16.0 g/dL Hematocrit 31.6 37-47 % Mean Corpuscular Volume 89.0 80-100 fL Mean Corpuscular Hemoglobin 30.1 25-34 pg Mean Corpuscular Hemoglobin Concent 33.9 32-36 g/dl Platelet Count 262 130-400 K/uL Mean Platelet Volume 8.9 7.4-10.4 fL Neutrophils (%) (Auto) 73.9 % Lymphocytes (%) (Auto) 19.2 % Monocytes (%) (Auto) 6.6 % Eosinophils (%) (Auto) 0.0 % Basophils (%) (Auto) 0.0 % Neutrophils # (Auto) 5.26 1.4-6.5 K/uL Lymphocytes # (Auto) 1.37 1.2-3.4 K/uL Monocytes # (Auto) 0.47 0.11-0.59 K/uL Eosinophils # (Auto) 0.00 0-0.5 K/uL Basophils # (Auto) 0.00 0-0.2 K/uL RDW Standard Deviation 42.5 36.4-46.3 fL RDW Coefficient of Variation 13.1 11.5-14.5 % Immature Granulocyte % (Auto) 0.3 % Immature Granulocyte # (Auto) 0.02 0.00-0.02 K/uL Sodium Level 144 136-145 mmol/L Potassium Level 3.7 3.5-5.1 mmol/L Chloride Level 110 98-107 mmol/L Carbon Dioxide Level 25 21-32 mmol/L Anion Gap 9.0 3-11 mmol/L Blood Urea Nitrogen 7 7-18 mg/dl Creatinine 0.84 0.60-1.20 mg/dl Est Creatinine Clear Calc Drug Dose 67.7 ml/min Estimated GFR () 90.0 Estimated GFR (Non- 77.7 BUN/Creatinine Ratio 7.7 10-20 Random Glucose 124 70-99 mg/dl Calcium Level 7.9 8.5-10.1 mg/dl Assessment & Plan s/p lap cholecystectomy for acute calculous cholecystitis - POD#1. Doing well. OK to discharge from surgical standpoint. All d/c instructions reviewed.
[2016-10-30] MEDS ORDERED: HYDROCODONE/ACETAMOPHEN 5/325MG TAB PO PRN (11:15)
[2016-10-30] MEDS ORDERED: TYL325X PO (12:11)
[2016-10-30] MEDS ORDERED: HYDR-5688 PO (12:11)
--- NOTE | 2016-10-30 12:23 | Discharge Instructions ---
Discharge Instructions Date of Service Oct 30, 2016. Admission Reason for Admission: Ruq Pain Discharge Discharge Diagnosis / Problem: S/P laproscopic cholecystectomy Discharge Goals Goal(s): Decrease discomfort, Improve function Activity Recommendations Activity Limitations: per Instructions/Follow-up section Lifting Limitations: no more than 5 pounds Exercise/Sports Limitations: until after follow-up appointment May Resume Sexual Activity: after follow-up appointment Shower/Bathe: no limitations Driving or Machine Use: after follow up appointment . Instructions / Follow-Up Instructions / Follow-Up Follow up with your PCP with in a week. Current Hospital Diet Patient's current hospital diet: Regular Diet Discharge Diet Recommended Diet: Regular Diet Fluid Restriction: None Procedures Procedures Performed: Laparoscopic cholecystectomy Pending Studies Studies pending at discharge: no Medical Emergencies . Who to Call and When: Medical Emergencies: If at any time you feel your situation is an emergency, please call 911 immediately. . Non-Emergent Contact Non-Emergency issues call your: Primary Care Provider Call Non-Emergent contact if: you have a fever, your pain is not controlled, your pain is worsening, your pain is unusual for you, your pain is concerning you, wound has increased drainage, wound has increased redness, wound has increased pain . Past History Medical & Surgical History: (1) Cholecystitis, acute with cholelithiasis (2) Prediabetes (3) Acid reflux . "Provider Documentation" section prepared by Danyel Reeves. VTE Core Measure Inpt VTE Proph given/why not?: SCD's [place] Drug Monitoring Program Search Results: patient reviewed within database
[2016-10-30 12:38] VITALS: BP 105/66; PULSE 65; TEMP 36.5; O2SAT 95
--- NOTE | 2016-10-30 17:54 | Discharge Summary ---
Discharge Summary Date of Service Oct 30, 2016. Discharge Summary Admission Date: Oct 29, 2016 at 04:16 Discharge Date: Oct 30, 2016 Discharge Disposition: Home Principal Diagnosis: acute cholecystitis status post laparoscopic cholecystectomy Problems/Secondary Diagnoses: Anxiety Consultations: Gen. surgery consultation Medication Reconciliation New Medications: Acetaminophen (Tylenol) 325 Mg Tab 650 MG PO Q8 PRN for mild pain (pain scale 1-3) for 5 Days, #30 TAB Hydrocodone/Acetaminophen 5MG/325MG ([place] 5MG/325MG) Tab 1 TAB PO Q6H PRN for Pain for 3 Days, #12 TAB PRN PAIN Continued Medications: Hydroxyzine Hcl (Atarax) 25 Mg Tab 25 MG PO BID PRN for Anxiety, TAB Metformin Hcl (Glucophage) 500 Mg Tab 500 MG PO DAILY, TAB Pantoprazole (Protonix) 40 Mg Tab 40 MG PO DAILY, #30 TAB Pravastatin Sod (Pravastatin Sodium) 40 Mg Tab 40 MG PO DAILY Ziprasidone Hcl (Geodon) 20 Mg Cap 20 MG PO BID, CAP Discharge Exam Patient is seen and examined by me. Patient is status post acute cholecystectomy day 2. Patient denies abdominal pain. Patient states that she' s feeling much better. Patient is able to walk in the hallway. Patient does not have any pain in the incision was from laparoscopic cholecystectomy. Patient is medically stable to discharge home Hospital Course 56 yr old woman with acute calculous cholecystitis. Normal LFT's and CBD diameter. Patient HIDA scan shows in the cystic duct with a picture of acute cholecystitis. Patient has a laparoscopic cholecystectomy done on 10/29/2016 without any complications. Patient was discharged home in stable condition. Total Time Spent: Greater than 30 minutes This includes examination of the patient, discharge planning, medication reconciliation, and communication with other providers. Discharge Instructions Discharge Discharge Diagnosis / Problem: acute calculous cholecystitis Discharge Goals Goal(s): Decrease discomfort Activity Recommendations Activity Limitations: resume your previous activity (walking/ stairs OK today) Lifting Limitations: no more than 10 pounds (2 wks) Exercise/Sports Limitations: until after follow-up appointment (2 wks) May Resume Sexual Activity: after two weeks Shower/Bathe: tomorrow (Remove outer gauze dressings prior to shower, leave steristrips x 7-10 days) Driving or Machine Use: resume 3 days after discharge (if off narcotics) . Instructions / Follow-Up Instructions / Follow-Up call [phone] to schedule a 2 [address]op appt with Dr. Banks Current Hospital Diet Patient's current hospital diet: Clear Liquid Diet Discharge Diet Recommended Diet: Low Fat Diet (for 4-6 wks; soups or liquids if bloating persists for first few days) Procedures Procedures Performed: Laparoscopic cholecystectomy Pending Studies Studies pending at discharge: no Medical Emergencies . Who to Call and When: Medical Emergencies: If at any time you feel your situation is an emergency, please call 911 immediately. . Non-Emergent Contact Non-Emergency issues call your: Surgeon Contact Number: [phone] Call Non-Emergent contact if: temperature is above 101.5, your pain is not controlled, your pain is worsening, wound has increased drainage, wound has increased redness, wound has increased pain . "Provider Documentation" section prepared by Kimberlyn Banks. VTE Core Measure Inpt VTE Proph given/why not?: SCD'sPlease refer to the electronic Patient Visit Report (Discharge Instructions) for additional information. Follow-Up Follow-up with PCP within one week Additional Copies To Sameera Mayer, [place]
[2017-02-02] MEDS ORDERED: GEMF600T3 PO (13:34)
[2017-02-02] MEDS ORDERED: ESCI10TA17 PO (13:34)
[2017-02-02] MEDS ORDERED: ZIPR1CAP4 PO (13:34)
== END 2016-10-30 14:07 | disposition hospice, home (50) ==
LOC: ENRESERVTM → ENRESERVDT → C.EDB 23:17 → C.MS2W 10-29 04:16
PROVIDERS: ADMIT Hospitalist; ATTEND Hospitalist
DX: K80.12 Calculus of gallbladder with acute and chronic cholecystitis without obstruction (principal); K21.9 Gastro-esophageal reflux disease without esophagitis; R73.03 Prediabetes; F31.81 Bipolar II disorder; Z90.49 Acquired absence of other specified parts of digestive tract; Z90.710 Acquired absence of both cervix and uterus; K44.9 Diaphragmatic hernia without obstruction or gangrene; Z79.84 Long term (current) use of oral hypoglycemic drugs; Z83.3 Family history of diabetes mellitus; Z82.49 Family history of ischemic heart disease and other diseases of the circulatory system

== ENCOUNTER → 2016-11-11 | Outpatient (CLI) | payer OTHER ==
[~2016-11-11] MED LIST changes: +ASPEC325 PO; +CLB200 PO; +CLC100 PO; +GEMF600T3 PO; +HYDR-3124 PO; +HYDR-5688 PO; +ONDA8TAB6 PO; +RXC5 PO; +TYL325X PO; +ZIPR1CAP4 PO
[2016-11-17 16:11] LABS: O&P SOURCE OTHER
== END | disposition home or self-care (01) ==
LOC: C.LABSPEC 17:59
PROVIDERS: ATTEND Nurse Practitioner
DX: R19.7 Diarrhea, unspecified (principal)

== ENCOUNTER → 2017-02-01 | Outpatient (CLI) | payer OTHER ==
[2017-02-01 12:23] LABS: CHOLESTEROL/HDL RATIO 5.2
[2017-02-01 12:38] LABS: ESTIMATED AVERAGE GLUCOSE 114 mg/dl; HA1C FLAG Normal (Normal)
== END | disposition home or self-care (01) ==
LOC: C.LABBFT 09:29
PROVIDERS: ATTEND Nurse Practitioner
DX: R73.03 Prediabetes (principal)

== ENCOUNTER → 2017-02-21 | Outpatient (CLI) | payer OTHER ==
[~2017-02-21] MED LIST changes: -HYDR-5688 PO; -TYL325X PO; -ZIPR20CA PO
[2017-02-21 13:00] LABS: ALKALINE PHOSPHATASE 85 U/L (45-117); ALT/SGPT 45 U/L (12-78); AST/SGOT 23 U/L (15-37)
== END | disposition home or self-care (01) ==
LOC: C.LABBFT 08:42
PROVIDERS: ATTEND Nurse Practitioner
DX: E78.1 Pure hyperglyceridemia (principal)

== ENCOUNTER 2017-03-03 05:20 | Inpatient (IN) | payer OTHER ==
[2017-02-02 13:34] VITALS: BMI 31.0
--- NOTE | 2017-02-02 14:09 | PAT Medication Instructions ---
Service Date Feb 02, 2017. Current Home Medication List Escitalopram (Lexapro), 10 MG PO QAM Gemfibrozil (Lopid), 600 MG PO HS Hydroxyzine Hcl (Atarax), 25 MG PO BID PRN for Anxiety Metformin Hcl (Glucophage), 500 MG PO QAM Pantoprazole (Protonix), 40 MG PO QAM Pravastatin Sod (Pravastatin Sodium), 40 MG PO QAM Ziprasidone Hcl (Geodon), 40 MG PO HS Medication Instructions For Your Scheduled Surgery - Hold the following medications 48 hours prior to surgery: Metformin Hcl (Glucophage), 500 MG PO QAM - Take the following medications the morning of surgery with a sip of water: Pantoprazole (Protonix), 40 MG PO QAM Pravastatin Sod (Pravastatin Sodium), 40 MG PO QAM Hydroxyzine Hcl (Atarax), 25 MG PO BID PRN for Anxiety (if needed) Escitalopram (Lexapro), 10 MG PO QAM - Hold the following medications as scheduled the night before surgery: Gemfibrozil (Lopid), 600 MG PO HS . - Take the following medications as scheduled the night before surgery: Ziprasidone Hcl (Geodon), 40 MG PO HS Hydroxyzine Hcl (Atarax), 25 MG PO BID PRN for Anxiety (if needed) If you have any questions please call us at [phone] or [phone] or [phone]
--- NOTE | 2017-02-02 14:27 | DIAGNOSTIC IMAGING REPORT ---
CHEST PREADMISSION(PA/LAT) CLINICAL HISTORY: PAT preoperative evaluation COMPARISON STUDY: No previous studies for comparison. FINDINGS: The bones soft tissues and hemidiaphragms are normal. The cardiomediastinal silhouette is normal. The lungs are clear. The pulmonary vasculature is normal. IMPRESSION: Negative chest. Electronically signed by: Vinicio Mata M.D. 02/02/2017 2:25 PM Dictated Date/Time: 02/02/2017 2:25 PM
[2017-02-02 14:30] LABS: BASO % 0.2 %; BASO ABS # 0.01 K/uL (0-0.2); COMPLETE YES; EOS % 3.4 %; HEMATOCRIT 37.8 % (37-47); IG% 0.2 %; LYMPH % 44.1 %; LYMPH ABS # 1.95 K/uL (1.2-3.4); MEAN CORPUSCULAR HEMOGLOBIN 30.2 pg (25-34); MEAN CORPUSCULAR HGB CONC 33.6 g/dl (32-36); MEAN PLATELET VOLUME 9.1 fL (7.4-10.4); MONO % 8.4 %; NEUT % 43.7 %; PLATELET COUNT 288 K/uL (130-400); WHITE BLOOD COUNT 4.42 K/uL (4.8-10.8)
[2017-02-02 14:34] LABS: BUN/CREATININE RATIO 17.7 (10-20); CALCIUM 9.1 mg/dl (8.5-10.1); CREATININE 0.86 mg/dl (0.60-1.20)
[2017-02-02 14:49] LABS: INR 0.9 (0.9-1.1)
[2017-02-02 14:49] LABS: URINE APPEARANCE CLEAR (CLEAR); URINE BILIRUBIN NEG (NEG); URINE COLOR YELLOW; URINE NITRITE NEG (NEG); URINE PH 5.5 (4.5-7.5); URINE SPECIFIC GRAVITY 1.024 (1.000-1.030); UROBILINOGEN NEG (NEG); ZZUR CULT IF INDIC CLEAN CATCH NO
[2017-02-02 15:04] LABS: MANUAL MICROSCOPIC REQUIRED? NO; REVIEW REQ? NO
--- NOTE | 2017-03-02 16:42 | HISTORY & PHYSICAL EXAMINATION ---
DATE OF ADMISSION: 03/03/2017 CHIEF COMPLAINT: Left hip pain. HISTORY OF PRESENT ILLNESS: The patient is a 56-year-old female with known severe osteoarthritis about her left hip. She has pain and disability with activities of daily living. She has pain with prolonged weightbearing and standing activities. She has difficulty with any kneeling, bending, or squatting activities. She now desires to proceed with left total hip arthroplasty. PAST MEDICAL HISTORY: Hypercholesterolemia, depression, type 2 diabetes, acid reflux. PAST SURGICAL HISTORY: Appendectomy, cholecystectomy, hip surgery, tonsillectomy, hysterectomy, tubal ligation. MEDICATIONS: Pantoprazole 40 mg daily, Atarax 25 mg b.i.d. p.r.n. anxiety, Geodon 20 mg twice daily, pravastatin 40 mg daily, metformin HCL 500 mg daily. ALLERGIES: FULL STRENGTH ASPIRIN causes acid reflux, MORPHINE causes headaches, PENICILLIN causes vaginal discharge, KEFLEX causes vaginal discharge, TYLENOL causes constipation. SOCIAL HISTORY AND REVIEW OF SYSTEMS: Noncontributory. PHYSICAL EXAMINATION: GENERAL: Well-nourished, well-developed female who appears stated age. HEAD, EYES, EARS, NOSE, AND THROAT: Normocephalic, atraumatic, extraocular movements intact, oropharynx pink and moist. NECK: Supple without adenopathy. LUNGS: Clear to auscultation bilaterally. HEART: Regular rate and rhythm. ABDOMEN: Soft, nontender, nondistended. EXTREMITIES: The upper extremity within normal limits. The left hip demonstrates limited range of motion. There is limitation of active and passive internal/external rotation with pain on end range. X-RAYS: X-rays were reviewed. She has severe osteoarthritis about the left hip with complete loss of the joint space. There are large osteophytes about the femoral head and acetabulum. There is deformation of the femoral head. ASSESSMENT: Left hip degenerative joint disease. PLAN: Risks versus benefits were discussed. Consent was obtained. The patient's primary care physician is Sameera Mayer PA-C from [facility]. Will proceed with left total hip arthroplasty upon preop workup and medical clearance.
[2017-03-03] VITALS (9 sets, daily range): BP systolic 100–120; BP diastolic 61–78; PULSE 63–79; TEMP 35.5–36.8; O2SAT 96–100; Ht 152.4 cm; Wt 73.3 kg
[~2017-03-03] VITALS: Ht 152.4 cm; Wt 73.3 kg
[~2017-03-03 05:20] MED LIST changes: -ASPEC325 PO; -CLB200 PO; -CLC100 PO; -ONDA8TAB6 PO; -RXC5 PO
[2017-03-03] MEDS ORDERED: FAMOTIDINE 20 MG TAB PO SCH (06:00)
[2017-03-03] MEDS ORDERED: DEXAMETHASONE 4 MG TAB PO SCH (06:00)
[2017-03-03] MEDS ORDERED: LACTATED RINGER'S 1000ML 1,000 ML IV SCH (06:00)
[2017-03-03] MEDS ORDERED: METOCLOPRAMIDE HCL 10 MG TAB PO SCH (06:00)
[2017-03-03] MEDS ORDERED: ROPIVACAINE 5MG/ML 30 ML 150 MG, BUPIVACAINE/EPINEPHR 0.5% MPF 30 ML, KETOROLAC TROMETH... INFIL SCH ×7 (06:00)
[2017-03-03] MEDS ORDERED: CeleBREX 200 MG CAP PO SCH (06:00)
[2017-03-03] MEDS ORDERED: ACETAMINOPHEN 500 MG TAB PO SCH (06:00)
[2017-03-03] MEDS ORDERED: GABAPENTIN 300 MG CAP PO SCH (06:00)
[2017-03-03] MEDS ORDERED: LACTATED RINGER'S 1000ML IV SCH (06:00)
[2017-03-03] MEDS ORDERED: VANCOMYCIN INJ 1,100 MG in SODIUM CHLORIDE 0.9% 250ML 250 ML IV SCH (06:00)
[2017-03-03] MEDS ORDERED: BUPIVACAINE 0.5 % 5 MG/1 ML PF 10ML VIAL ONE (06:28)
[2017-03-03] MEDS: TRANEXAMIC ACID INJ 1,000 MG in SODIUM CHLORIDE 0.9% 100ML 100 ML IV SCH ×2 (06:30→06:52)
[2017-03-03] MEDS ORDERED: BACITRACIN 50000 UNIT VIAL ONE (06:33)
[2017-03-03] MEDS ORDERED: POVIDONE-IODINE OP SOLN 30 ML BTL ONE (06:33)
[2017-03-03] MEDS ORDERED: ORTHO JOINT ANESTHETIC ONE (06:33)
[2017-03-03] MEDS ORDERED: MIDAZOLAM HCL 1 MG/ML 2ML VIAL ONE ×2 (06:40)
[2017-03-03] MEDS ORDERED: FENTANYL CITRATE INJ 50 MCG/1 ML 2 ML VIAL ONE (06:40)
--- NOTE | 2017-03-03 06:55 | History & Physical Bridge Note ---
H&P Re-Evaluation Bridge Note: I have examined the patient, reviewed the History & Physical and in the interval since the performance of the History & Physical I have noted the following changes of clinical significance: No changes noted
[2017-03-03] MEDS ORDERED: PROPOFOL IV EMULSION 10 MG/ML 20 ML VIAL IV ONE (07:11)
[2017-03-03] MEDS ORDERED: LIDOCAINE HCL 2% 2 ML VIAL (20MG/ML) ONE (07:11)
[2017-03-03] MEDS ORDERED: ATROPINE SULFATE 0.1 MG/ML 5ML SYR IV PRN (07:15)
[2017-03-03] MEDS ORDERED: ONDANSETRON INJ 2 MG/ML 2 ML VIAL IV PRN ×2 (07:15→08:15)
[2017-03-03] MEDS ORDERED: EpHEDrine SULFATE INJ 50 MG/ML AMP IV PRN (07:15)
[2017-03-03] MEDS ORDERED: FENTANYL CITRATE INJ 50 MCG/1 ML 2 ML VIAL IV PRN (07:15)
[2017-03-03] MEDS ORDERED: PROMETHAZINE HCL INJ 6.25 MG in SODIUM CHLORIDE 0.9% 50ML 50 ML IV PRN (07:15)
[2017-03-03] MEDS ORDERED: EpHEDrine SULFATE 50MG/5ML SYR ONE (07:54)
--- NOTE | 2017-03-03 07:58 | [facility] Post Operative Brief Note ---
Immediate Operative Summary Operative Date Mar 03, 2017. Pre-Operative Diagnosis Left Hip Degenerative Joint Disease Post-Operative Diagnosis Left Hip Degenerative Joint Disease Procedure(s) Performed Left Total Hip Arthroplasty Surgeon Dr. Hari Platt Automatic Glove Turner And Former Surgeon(s) Jefferson Ray PA-C Estimated Blood Loss 100ML Findings Severe OA Specimens A. Left Femoral Head Complication(s) None Disposition Recovery Room / PACU
--- NOTE | 2017-03-03 08:08 | OPERATIVE REPORT ---
DATE OF OPERATION: 03/03/2017 PREOPERATIVE DIAGNOSIS: Osteoarthritis, left hip. POSTOPERATIVE DIAGNOSIS: Osteoarthritis left hip. PROCEDURE: Left connective total hip arthroplasty. SURGEON: Dr. Platt. VALIDATION INTERN: Jefferson Ray PA-C. ANESTHESIA: Spinal. COMPLICATIONS: None. OPERATION AND FINDINGS: PROCEDURE: Following induction of adequate spinal anesthesia, the patient was placed in right lateral decubitus position and left Claudia-Langenbeck incision was made. Subcutaneous tissue was sharply dissected. Electrocautery used for hemostasis. The fascia was incised throughout the length of the wound and a kaur scissor placed beneath the short external rotators. The pyriformis was tagged with #1 Vicryl. The short external rotators were divided from the posterior aspect of the femur using electrocautery. These were swept posteriorly. A T-capsulotomy incision was made and the hip was dislocated using a combination of flexion, adduction, and internal rotation. Exposure of the femoral neck with old-style Hohmann and a blunt Hohmann was carried out and a femoral rasp was utilized as a guide for making the appropriate level femoral neck cut. This bone fragment was removed and reserved on the back table. Next, attention was turned to the acetabulum where bone hook was used to retract the femur while the offset retractors were placed anterior and posteriorly. A double-angled Hohmann was placed in superior and anterior position exposing the acetabulum nicely. Acetabular labrum as well as posterior capsule elements were removed using a long knife and a long pickup. Fovea centralis was cleared of all soft tissue. Sequential reamings were carried up to a 50 and decision was made to proceed with impaction of a 50 trabecular metal cup. This was impacted and held using a single 35 mm bone screw. The acetabular liner was placed with 15 of elevated posterior wall in the superior and posterior position. Next, attention was turned to the femoral portion of the case where a Bovie and pickup was used to further clear short external rotators from their insertion on the femur. Box osteotome was used to gain access to the femoral canal and the T-handled rasp and a rattail rasp were used to further open and lateral the canal. Sequentially raspings were carried up to a size 3 which gave good fit and fill of the proximal femur. A trial reduction was carried out and size 3 offset femoral neck component was chosen as the size to be used. A -5 x 36 mm ceramic femoral head was impacted into position, +0 head was utilized. The trial reduction was stable in all degrees of rotation with no [id number] impingement. The hip was dislocated. The trial components were removed and the final femoral stem, neck, and femoral head combination were assembled on the back table and impacted into position. Hip was relocated. Range of motion checked once again successful and the wound was irrigated. The pyriformis repaired to the greater trochanter using #1 Vicryl [id number] suture. A Hemovac drain was placed and the fascia was closed using #1 Vicryl, subcutaneous tissue was closed using 0 Dexon, and skin was closed with romaine. Sterile dressing of Adaptic, 4 x 4's, ABDs, and foam tape was applied. The patient tolerated the procedure well. Recovery room stable. Due to the complex nature of the procedure, the entire surgery was performed with the operational assistance of Jefferson Ray PA-C. The photographer's assistant, under direct supervision, was involved in the actual performance of all aspects of the surgical procedure including hemostasis, tissue retraction and incision, instrument management, patient positioning, and wound closure. I attest to the content of the Intraoperative Record and any orders documented therein. Any exception s are noted below.
[2017-03-03] MEDS ORDERED: METOCLOPRAMIDE HCL INJ 5 MG/ML 2 ML VIAL IV PRN (08:15)
[2017-03-03] MEDS ORDERED: MoRPHine SULFATE 2 MG/ML CARP IV PRN (08:15)
[2017-03-03] MEDS ORDERED: BISACODYL 10 MG SUPP PR PRN (08:15)
[2017-03-03] MEDS ORDERED: SOD PHOSPHATE/SOD BIPHOSPHATE ENEMA 132 ML BTL PR PRN (08:15)
[2017-03-03] MEDS ORDERED: ZOLPIDEM TARTRATE 5 MG TAB PO PRN (08:15)
[2017-03-03] MEDS ORDERED: MAGNESIUM HYDROXIDE SUSP 30 ML UDC PO PRN (08:15)
--- NOTE | 2017-03-03 09:03 | DIAGNOSTIC IMAGING REPORT ---
LEFT PELVIS/UNILATERAL HIP 1 VIEW CLINICAL HISTORY: Postoperative evaluation. Left hip osteoarthritis. COMPARISON: None FINDINGS: Alignment of the total left hip arthroplasty is anatomic. There is no periprosthetic fracture or unexpected radiopaque foreign body. Drains and skin romaine are present. IMPRESSION: Expected findings following total left hip arthroplasty. Electronically signed by: Reza Grier M.D. 03/03/2017 9:01 AM Dictated Date/Time: 03/03/2017 8:55 AM
--- NOTE | 2017-03-03 09:51 | Anesthesiology Progress Note ---
Anesthesia Post Op Note Date & Time Mar 03, 2017 at 09:51 Vital Signs Pain Intensity: 0 Vital Signs Past 12 Hours Date Time Temp Pulse Resp B/P (MAP) Pulse Ox O2 Delivery O2 Flow Rate FiO2 03/03/17 09:38 36.5 03/03/17 09:37 65 12 03/03/17 09:37 65 12 100 03/03/17 09:36 108/62 03/03/17 09:32 62 12 03/03/17 09:32 60 12 100 03/03/17 09:31 105/60 03/03/17 09:27 62 12 100 03/03/17 09:27 61 12 03/03/17 09:26 105/61 03/03/17 09:22 63 12 03/03/17 09:22 63 12 100 03/03/17 09:21 108/61 03/03/17 09:17 61 12 03/03/17 09:17 61 12 100 03/03/17 09:16 102/60 03/03/17 09:12 60 12 100 03/03/17 09:12 60 12 03/03/17 09:11 96/63 03/03/17 09:07 61 15 03/03/17 09:07 60 15 100 03/03/17 09:06 104/61 03/03/17 09:02 60 13 03/03/17 09:02 61 13 100 03/03/17 09:01 107/63 03/03/17 08:57 60 13 100 03/03/17 08:57 61 13 03/03/17 08:56 103/63 03/03/17 08:53 Nasal Cannula 3 03/03/17 08:52 64 12 03/03/17 08:52 63 12 100 03/03/17 08:51 101/61 03/03/17 08:47 69 15 100 03/03/17 08:47 68 15 03/03/17 08:46 107/60 03/03/17 08:42 65 43 100 03/03/17 08:42 64 43 03/03/17 08:41 106/80 03/03/17 08:37 65 13 03/03/17 08:37 65 13 100 03/03/17 08:36 95/62 03/03/17 08:32 36.3 63 16 95/62 98 Mask 7 03/03/17 05:55 36.8 63 18 120/78 99 Room Air Notes Mental Status: alert / awake / arousable, participated in evaluation Pt Amnestic to Procedure: Yes Nausea / Vomiting: adequately controlled Pain: adequately controlled Airway Patency, RR, SpO2: stable & adequate BP & HR: stable & adequate Hydration State: stable & adequate Anesthetic Complications: no major complications apparent
[2017-03-03] MEDS: D5W AND 1/2NSS + 20MEQ KCL 1,000 ML IV SCH ×2 (10:44→20:43)
[2017-03-03] MEDS ORDERED: MoRPHine SULFATE 4 MG/ML 1 ML CARP\\VIAL IV PRN (10:45)
[2017-03-03] MEDS ORDERED: MoRPHine SULFATE 10 MG/ML CARP/VIAL IV PRN (10:45)
[2017-03-03] MEDS: GEMFIBROZIL 600 MG TAB PO SCH (11:07)
[2017-03-03] MEDS: PANTOprazole SOD 40 MG TAB PO SCH (11:07)
[2017-03-03] MEDS: MULTIVITAMIN TAB PO SCH (11:07)
[2017-03-03] MEDS: ESCITALOPRAM OXALATE 10 MG TAB PO SCH (11:07)
[2017-03-03] MEDS ORDERED: TRANEXAMIC ACID INJ 1,000 MG in SODIUM CHLORIDE 0.9% 100ML 100 ML IV ONE (14:30)
[2017-03-03] MEDS: OXYCODONE HCL IR 5 MG TAB (IMMEDIATE RELEASE) PO PRN ×3 (17:27→22:35)
[2017-03-03] MEDS: CEFAZOLIN IV 1,000 MG in DEXTROSE 5% 50ML 50 ML IV SCH (18:31)
[2017-03-03] MEDS: CeleBREX 200 MG CAP PO SCH (20:43)
[2017-03-03] MEDS: DOCUSATE SODIUM 100 MG CAP PO SCH (20:44)
[2017-03-03] MEDS: PRAVASTATIN SOD 40 MG TAB PO SCH (20:44)
[2017-03-03] MEDS: SENNA 8.6 MG TAB PO SCH (20:44)
[2017-03-03] MEDS: ASPIRIN 325 MG ECTAB PO SCH (20:44)
[2017-03-03] MEDS: ZIPRASIDONE 20 MG CAP PO SCH (22:34)
[2017-03-04] VITALS (7 sets, daily range): BP systolic 100–126; BP diastolic 60–77; PULSE 60–74; TEMP 36.5–37; O2SAT 95–98
[2017-03-04] MEDS: CEFAZOLIN IV 1,000 MG in DEXTROSE 5% 50ML 50 ML IV SCH (02:05)
[2017-03-04] MEDS: D5W AND 1/2NSS + 20MEQ KCL 1,000 ML IV SCH ×2 (06:31→16:18)
--- NOTE | 2017-03-04 08:13 | Anesthesiology Progress Note ---
Anesthesia Post Op Note Date & Time Mar 04, 2017 at 08:12 Vital Signs Vital Signs Past 12 Hours Date Time Temp Pulse Resp B/P (MAP) Pulse Ox O2 Delivery O2 Flow Rate FiO2 03/04/17 08:01 Room Air 03/04/17 08:00 36.5 62 16 100/62 (75) 98 Room Air 03/04/17 03:52 36.5 60 16 106/64 (78) 96 Room Air 03/03/17 23:28 Room Air 03/03/17 22:56 36.7 70 16 101/61 (74) 96 Room Air Notes Mental Status: alert / awake / arousable, participated in evaluation Pt Amnestic to Procedure: Yes Nausea / Vomiting: adequately controlled Pain: adequately controlled Airway Patency, RR, SpO2: stable & adequate BP & HR: stable & adequate Hydration State: stable & adequate Neuraxial Anesthesia: was administered, sensory block resolved Anesthetic Complications: no major complications apparent
[2017-03-04] MEDS: ESCITALOPRAM OXALATE 10 MG TAB PO SCH (08:30)
[2017-03-04] MEDS: GEMFIBROZIL 600 MG TAB PO SCH (08:30)
[2017-03-04] MEDS: PANTOprazole SOD 40 MG TAB PO SCH (08:30)
[2017-03-04] MEDS: MULTIVITAMIN TAB PO SCH (08:31)
[2017-03-04] MEDS: DOCUSATE SODIUM 100 MG CAP PO SCH ×2 (08:31→20:52)
[2017-03-04] MEDS: CeleBREX 200 MG CAP PO SCH ×2 (08:31→20:52)
[2017-03-04] MEDS: ASPIRIN 325 MG ECTAB PO SCH ×2 (08:31→20:52)
[2017-03-04] MEDS: OXYCODONE HCL IR 5 MG TAB (IMMEDIATE RELEASE) PO PRN ×3 (10:07→23:17)
--- NOTE | 2017-03-04 12:29 | Orthopedic Progress Note ---
Orthopedic Progress Note Date of Service Mar 04, 2017. Subjective Post OP Day: 1 Reports: feeling well, pain controlled w PO medications, Denies: complaints, chest pain, SOB, nausea / vomiting, light headedness, calf pain Objective calves soft nontender, N/V intact, dressing C/D/I, A&O x3, toes mobile, hemovac drainage (55cc) Date Time Temp Pulse Resp B/P (MAP) Pulse Ox O2 Delivery O2 Flow Rate FiO2 03/04/17 12:08 36.5 60 16 104/60 (75) 98 Room Air 03/04/17 08:19 98 Room Air 03/04/17 08:01 Room Air 03/04/17 08:00 36.5 62 16 100/62 (75) 98 Room Air 03/04/17 03:52 36.5 60 16 106/64 (78) 96 Room Air 03/03/17 23:28 Room Air 03/03/17 22:56 36.7 70 16 101/61 (74) 96 Room Air 03/03/17 19:28 36.8 79 18 110/67 (81) 96 Room Air 03/03/17 15:50 Room Air 03/03/17 14:55 36.8 76 17 100/64 (76) 96 Room Air 03/03/17 13:00 78 16 109/68 (82) 99 Laboratory Results 24 Hours: Test 03/04/17 11:50 Assessment & Plan Assessment: POD #1 Left JOSEFINA Plan: DVT prophylaxis - ASA PT/OT Discharge - will be going to [facility] once approved by insurance. Inhouse Planning Pain Management: Celebrex, Oxy IR DVT Prophylaxis: TEDs, SCDs, ASA Discharge Planning Discharge Planning: halfway facility ([facility]) DVT Prophylaxis: TEDs, ASA Therapy: Physical Therapy
[2017-03-04 12:42] LABS: HEMATOCRIT 31.4 % (37-47); MEAN CELL VOLUME 91.8 fL (80-100); MEAN CORPUSCULAR HEMOGLOBIN 30.4 pg (25-34); MEAN CORPUSCULAR HGB CONC 33.1 g/dl (32-36); PLATELET COUNT 267 K/uL (130-400); RED BLOOD COUNT 3.42 M/uL (4.2-5.4); WHITE BLOOD COUNT 9.84 K/uL (4.8-10.8)
[2017-03-04 13:09] LABS: BUN/CREATININE RATIO 12.4 (10-20); CALCIUM 8.2 mg/dl (8.5-10.1); CREATININE 1.1 mg/dl (0.60-1.20); POTASSIUM 4.1 mmol/L (3.5-5.1)
[2017-03-04] MEDS ORDERED: NURSING VERBAL MED ORDER ONE (18:00)
[2017-03-04] MEDS: SENNA 8.6 MG TAB PO SCH (20:53)
[2017-03-04] MEDS: PRAVASTATIN SOD 40 MG TAB PO SCH (20:53)
[2017-03-04] MEDS: ZIPRASIDONE 20 MG CAP PO SCH (20:53)
[2017-03-05 07:08] VITALS: BP 92/58; PULSE 74; TEMP 37.1; O2SAT 96
--- NOTE | 2017-03-05 07:35 | Orthopedic Progress Note ---
Orthopedic Progress Note Date of Service Mar 05, 2017. Subjective Post OP Day: 2 Reports: feeling well, pain controlled w PO medications, Denies: complaints, chest pain, SOB, nausea / vomiting, light headedness, calf pain Objective calves soft nontender, N/V intact, capillary refill less than 2 sec., A&O x3, toes mobile Date Time Temp Pulse Resp B/P (MAP) Pulse Ox O2 Delivery O2 Flow Rate FiO2 03/05/17 07:08 37.1 74 17 92/58 (69) 96 Room Air 03/04/17 23:10 Room Air 03/04/17 23:01 37.0 74 14 113/70 (84) 95 Room Air 03/04/17 20:58 36.9 73 126/77 (93) 03/04/17 15:29 Room Air 03/04/17 14:51 36.7 61 16 105/65 (78) 97 Room Air 03/04/17 12:08 36.5 60 16 104/60 (75) 98 Room Air 03/04/17 08:19 98 Room Air 03/04/17 08:01 Room Air 03/04/17 08:00 36.5 62 16 100/62 (75) 98 Room Air Laboratory Results 24 Hours: Test 03/04/17 12:25 Hematocrit 31.4 % Hemoglobin 10.4 g/dL Assessment & Plan Assessment: POD #2 Left JOSEFINA Plan: DVT prophylaxis - ASA PT/OT Discharge - will be going to [facility] once approved by insurance, has been accepted to [facility], awaiting insurance approval. Discharge Planning Discharge Planning: rehab hospital DVT Prophylaxis: SIMEON Evans Therapy: Physical Therapy
[2017-03-05] MEDS: ESCITALOPRAM OXALATE 10 MG TAB PO SCH (08:41)
[2017-03-05] MEDS: PANTOprazole SOD 40 MG TAB PO SCH (08:41)
[2017-03-05] MEDS: CeleBREX 200 MG CAP PO SCH ×2 (08:41→20:56)
[2017-03-05] MEDS: MULTIVITAMIN TAB PO SCH (08:41)
[2017-03-05] MEDS: GEMFIBROZIL 600 MG TAB PO SCH (08:41)
[2017-03-05] MEDS: DOCUSATE SODIUM 100 MG CAP PO SCH ×2 (08:41→20:57)
[2017-03-05] MEDS: ASPIRIN 325 MG ECTAB PO SCH ×2 (08:41→20:57)
[2017-03-05] MEDS: OXYCODONE HCL IR 5 MG TAB (IMMEDIATE RELEASE) PO PRN (08:45)
[2017-03-05 15:20] VITALS: BP 100/65; PULSE 81; TEMP 36.7; O2SAT 94
[2017-03-05] MEDS: ZIPRASIDONE 20 MG CAP PO SCH (20:56)
[2017-03-05] MEDS: PRAVASTATIN SOD 40 MG TAB PO SCH (20:56)
[2017-03-05] MEDS: SENNA 8.6 MG TAB PO SCH (20:57)
[2017-03-05 22:48] VITALS: BP 94/58; PULSE 85; TEMP 37.4; O2SAT 93
--- NOTE | 2017-03-06 06:17 | Orthopedic Progress Note ---
Orthopedic Progress Note Date of Service Mar 06, 2017. Subjective Post OP Day: 3 Reports: feeling well, pain controlled w PO medications, Denies: complaints, chest pain, SOB, nausea / vomiting, light headedness, calf pain Objective calves soft nontender, N/V intact, capillary refill less than 2 sec., dressing C /D/I, A&O x3, toes mobile Date Time Temp Pulse Resp B/P (MAP) Pulse Ox O2 Delivery O2 Flow Rate FiO2 03/05/17 23:35 Room Air 03/05/17 22:48 37.4 85 16 94/58 (70) 93 Room Air 03/05/17 19:20 Room Air 03/05/17 15:20 36.7 81 18 100/65 (77) 94 Room Air 03/05/17 07:55 Room Air 03/05/17 07:08 37.1 74 17 92/58 (69) 96 Room Air Assessment & Plan Assessment: POD #3 Left JOSEFINA Plan: DVT prophylaxis - ASA PT/OT Discharge - patient progressing well, was denied to [facility]. would like to be d/c home today with HHPT. Discharge Planning Discharge Planning: home with home health DVT Prophylaxis: Cristina ASA Therapy: Physical Therapy
[2017-03-06] MEDS ORDERED: ASPEC325 PO (06:20)
[2017-03-06] MEDS ORDERED: CLB200 PO (06:20)
[2017-03-06] MEDS ORDERED: RXC5 PO (06:20)
[2017-03-06] MEDS ORDERED: ONDA8TAB6 PO (06:20)
[2017-03-06] MEDS ORDERED: CLC100 PO (06:20)
--- NOTE | 2017-03-06 06:21 | Discharge Instructions ---
Discharge Instructions Date of Service Mar 06, 2017. Admission Reason for Admission: Left Hip Osteoarthritis Discharge Discharge Diagnosis / Problem: Left Total Hip Replacement Discharge Goals Goal(s): Decrease discomfort, Improve function, Increase independence Activity Recommendations Activity Limitations: as noted below Weightbearing Status: Left weightbearing (as tolerated) . Instructions / Follow-Up Instructions / Follow-Up ACTIVITY RECOMMENDATIONS: SELF CARE INSTRUCTIONS AFTER TOTAL HIP REPLACEMENT Until the incision and soft tissues around your hip have healed, there is a possibility that the hip prosthesis could dislocate. A. Observe the following precautions to prevent dislocation: 1. Don't bend your hip greater than 90 degrees. 2. Avoid crossing your legs or ankles while standing or lying. 3. Sit with your feet placed 6 inches apart. 4. When sitting, keep your knees below your hips. Sit on a firm surface, avoid deep, soft chairs and couches. Use an elevated toilet seat in the bathroom. 5. Don't bend over at the waist. Use a long handled shoehorn and a sock aid to help you put on your shoes and socks. A analysis engineer can help you car pick up driver objects that are too high or too low to reach. 6. Keep car riding to a minimum for at least one month after surgery. B. Your balance may be shaky for a while. Use crutches or a walker until directed by your doctor. C. Use hand rails when walking on stairs. D. Wear low heeled shoes with non-slip soles. E. Be sure that your floors are free of things that could trip you - throw rugs , electrical cords, small objects. Avoid wet and waxed floors, especially with crutches and canes. F. Try to walk several times a day with rest periods between. G. Continue with all the exercises taught to you in the hospital. Again, make walking a part of your daily routine. SPECIAL CARE INSTRUCTIONS: VERY IMPORTANT TO READ AND REVIEW A. You may still be at risk for phlebitis and blood clots. 1. Wear surgical stockings (NELLY hose) for 2 weeks after surgery to improve circulation and reduce swelling. 2. Take Aspirin 81mg twice daily for 4 weeks or as directed by your doctor. This is your blood thinner. 3. High risk patients may be prescribed a stronger blood thinner if necessary. 4. If you are on Coumadin normally, your family doctor/pattern repair person should monitor your blood work. Expect a phone call the day of or the day after bloodwork is drawn to adjust your dosage. B. You must take antibiotics before having dental work, bladder, bowel and other surgery. Your doctor will provide you with a permanent card to carry describing precautions. C. Call [facility] if you have a fever, redness or swelling around the incision, cloudy drainage from incision, or sudden increase in pain in your hip, not relieved by your regular pain medication. D. Please call the office at if you have any concerns or questions about your operation or recovery. * YOU MAY SHOWER, NO TUB BATHS UNTIL CLEARED BY YOUR DOCTOR. * WEAR NELLY HOSE 20 HOURS PER DAY FOR 2 WEEKS. * YOU SHOULD USE A WALKER OR CRUTCHES FOR 2-4 WEEKS. THIS WILL HELP PREVENT STRAIN ON YOUR HIP MUSCLE AND ALLOW IT TO HEAL PROPERLY. YOU MAY WEAN TO A CANE TOLERATED. * MOST PATIENTS WILL HAVE HOME NURSING FOR THERAPY. IF YOU DECIDE TO DO OUTPATIENT PHYSICAL THERAPY, PLEASE SCHEDULE THIS 3 TIMES PER WEEK. * Prevena- This is a large suction dressing covering your incision. This will help pull any excess drainage from the wound and allow your incision to heal properly. You may shower with this if you can keep the unit outside of the shower. If any bleeding or leakage is noted please call your doctor's office. This will remain on your incision for 7 days and then should be removed. This can be done yourself or by the home nursing staff if applicable. The entire unit is disposable once removed. Once removed, keep incision clean and dry. If redness or drainage is noted, please call your surgeon. FOLLOW UP VISIT: If appointment is not already scheduled: Please call [facility] to make a follow-up appointment for 2 weeks after your surgery at . Current Hospital Diet Patient's current hospital diet: Diabetes Type 2 Diet Discharge Diet Recommended Diet: Diabetes Type 2 Diet Procedures Procedures Performed: Left Total Hip Arthroplasty Pending Studies Studies pending at discharge: no Laboratory Results Hemoglobin A1c Test 02/01/17 09:32 Range/Units Estimated Average Glucose 114 mg/dl Hemoglobin A1c 5.6 4.5-5.6 % Lipid Panel Test 02/01/17 09:32 Range/Units Triglycerides Level 466 H 0-150 mg/dl Cholesterol Level 253 H 0-200 mg/dl HDL Cholesterol 49 mg/dl Cholesterol/HDL Ratio 5.2 LDL Cholesterol, Calculated mg/dl Medical Emergencies . Who to Call and When: Medical Emergencies: If at any time you feel your situation is an emergency, please call 911 immediately. . Non-Emergent Contact Non-Emergency issues call your: Primary Care Provider, Surgeon . "Provider Documentation" section prepared by Vinicio Maguire. . VTE Core Measure Inpt VTE Proph given/why not?: Other Anticoagulation (ASA 325mg po bid x 1 month), T.E.D. Stockings, SCD's [place] Drug Monitoring Program Search Results: patient reviewed within database, no issues identified
[2017-03-06 07:14] VITALS: BP 99/64; PULSE 86; TEMP 36.8; O2SAT 97
[2017-03-06 07:30] VITALS: BP 99/64; PULSE 86; TEMP 36.8; O2SAT 97
[2017-03-06] MEDS: PANTOprazole SOD 40 MG TAB PO SCH (08:30)
[2017-03-06] MEDS: ESCITALOPRAM OXALATE 10 MG TAB PO SCH (08:30)
[2017-03-06] MEDS: GEMFIBROZIL 600 MG TAB PO SCH (08:30)
[2017-03-06] MEDS: ASPIRIN 325 MG ECTAB PO SCH (08:31)
[2017-03-06] MEDS: CeleBREX 200 MG CAP PO SCH (08:31)
[2017-03-06] MEDS: DOCUSATE SODIUM 100 MG CAP PO SCH (08:31)
[2017-03-06] MEDS: OXYCODONE HCL IR 5 MG TAB (IMMEDIATE RELEASE) PO PRN (08:31)
[2017-03-06] MEDS: MULTIVITAMIN TAB PO SCH (08:31)
--- NOTE | 2017-03-10 16:12 | DISCHARGE SUMMARY ---
DISCHARGE DIAGNOSIS: Degenerative joint disease, left hip. SECONDARY DIAGNOSES: Hypercholesterolemia, depression, type 2 diabetes mellitus, and gastroesophageal reflux disease. CONSULTS: None. COMPLICATIONS: None. PROCEDURES: Left total hip arthroplasty performed by Dr. Platt on 03/03/2017. BRIEF HISTORY: As dictated in the history and physical. HOSPITAL SUMMARY: The patient was admitted on the above-noted date and had the above-noted surgery performed, which she tolerated well. On her first postoperative day, she was feeling well and pain was controlled. She had no complaints. Her dressings were clean, dry and intact. Neurovascular was intact. Hip was in place and calves were soft and nontender. Vital signs were stable. She was afebrile and she was started on physical therapy protocol and continued on DVT prophylaxis and pain management. By her second postoperative day, she was continued to remain well and pain was controlled. Vital signs were stable. She was afebrile and she was continued on her protocol. Plans were for [employer] and authorization was in progress. By her third postoperative day, she continued to progress well with her physical therapy. She was without complaints. Dressings clean, dry and intact. Toes were mobile. Calves were soft and nontender. Vital signs were stable. She was afebrile. She was progressing well enough that she was denied [facility] and plans were for home health services. She was thusly discharged to home on 03/06/2017. For further review, please see chart. LAB AND X-RAY DATA: As per chart. DISCHARGE INSTRUCTIONS: The patient was discharged to home in satisfactory condition on 03/06/2017. DIET: Diabetic. ACTIVITY: Weightbearing as tolerated, left lower extremity. Follow [facility] instruction sheets and special care instructions as noted. Follow up with Dr. Platt in 2 weeks. The patient is to call for appointment if one has not been made for you. DISCHARGE MEDICATIONS: Aspirin 325 mg p.o. b.i.d. for 30 days, Celebrex 200 mg p.o. b.i.d. for 30 days, Colace 100 mg p.o. b.i.d. for 10 days, Zofran 8 mg p.o. q. 8 hours p.r.n. nausea, and oxycodone 5-10 mg p.o. q. 4 hours p.r.n. Resume home meds as listed.
== END 2017-03-06 13:10 | disposition home or self-care (01) | DRG 470 ==
LOC: C.ACU 05:20 → C.3E 08:10 → ENRESERV 09:24
PROC: 0SRB0JZ Replacement of Left Hip Joint with Synthetic Substitute, Open Approach (ICD-10-PCS; principal; 2017-03-03 07:00)
DX: M16.12 Unilateral primary osteoarthritis, left hip (principal); E78.00 Pure hypercholesterolemia, unspecified; F32.9 Major depressive disorder, single episode, unspecified; E66.9 Obesity, unspecified; K44.9 Diaphragmatic hernia without obstruction or gangrene; K21.9 Gastro-esophageal reflux disease without esophagitis; E11.9 Type 2 diabetes mellitus without complications; F20.9 Schizophrenia, unspecified; Z79.899 Other long term (current) drug therapy; Z68.31 Body mass index [BMI] 31.0-31.9, adult; Z79.84 Long term (current) use of oral hypoglycemic drugs

== ENCOUNTER → 2017-06-07 | Outpatient (CLI) | payer OTHER ==
[~2017-06-07] MED LIST changes: +ASPEC325 PO; +CLB200 PO; +CLC100 PO; +ONDA8TAB6 PO; +RXC5 PO
[2017-06-07 17:35] LABS: ALT/SGPT 42 U/L (12-78); BLOOD UREA NITROGEN 15 mg/dl (7-18); BUN/CREATININE RATIO 17.6 (10-20); CALCIUM 9.2 mg/dl (8.5-10.1); CARBON DIOXIDE 28 mmol/L (21-32); CHLORIDE 106 mmol/L (98-107); CHOLESTEROL 230 mg/dl (0-200); CREATININE 0.87 mg/dl (0.60-1.20); GLUCOSE 96 mg/dl (70-99); POTASSIUM 3.8 mmol/L (3.5-5.1); SODIUM 142 mmol/L (136-145); TRIGLYCERIDES 295 mg/dl (0-150); VERY LOW DENSITY LIPOPROT CALC 59 mg/dl
[2017-06-07 17:38] LABS: ALB/GLOB RATIO 1.1 (0.9-2); ALKALINE PHOSPHATASE 103 U/L (45-117); AST/SGOT 33 U/L (15-37); HDL CHOLESTEROL 58 mg/dl; LDL CHOLESTEROL CALCULATED 113 mg/dl
== END | disposition home or self-care (01) ==
LOC: C.LABBFT 11:44
PROVIDERS: ATTEND Nurse Practitioner
DX: E78.5 Hyperlipidemia, unspecified (principal)

== ENCOUNTER → 2017-11-23 | Outpatient (CLI) | payer OTHER ==
[~2017-11-23] MED LIST changes: -ONDA8TAB6 PO; -ZIPR1CAP4 PO; +ZIPR40CA21 PO
[2017-11-23 12:23] LABS: HEMATOCRIT 40.2 % (37-47); HEMOGLOBIN 13.2 g/dL (12.0-16.0); HEMOGLOBIN A1C 5.5 % (4.5-5.6); MEAN CELL VOLUME 93.1 fL (80-100); MEAN CORPUSCULAR HEMOGLOBIN 30.6 pg (25-34); MEAN CORPUSCULAR HGB CONC 32.8 g/dl (32-36); MEAN PLATELET VOLUME 9.5 fL (7.4-10.4); PLATELET COUNT 321 K/uL (130-400); RED CELL DISTRIBUTION WIDTH CV 13.6 % (11.5-14.5); RED CELL DISTRIBUTION WIDTH SD 46.6 fL (36.4-46.3); WHITE BLOOD COUNT 5.37 K/uL (4.8-10.8)
[2017-11-23 12:26] LABS: ALT/SGPT 53 U/L (12-78); AST/SGOT 27 U/L (15-37); BLOOD UREA NITROGEN 18 mg/dl (7-18); CALCIUM 9.2 mg/dl (8.5-10.1); CARBON DIOXIDE 27 mmol/L (21-32); GLUCOSE 104 mg/dl (70-99); POTASSIUM 3.9 mmol/L (3.5-5.1); SODIUM 139 mmol/L (136-145)
[2017-11-23 12:29] LABS: CHOLESTEROL 257 mg/dl (0-200); LDL CHOLESTEROL CALCULATED 127 mg/dl
== END | disposition home or self-care (01) ==
LOC: C.LABBFT 08:13
PROVIDERS: ATTEND Nurse Practitioner
DX: E78.1 Pure hyperglyceridemia (principal); R73.03 Prediabetes; R51 Headache